=== PATIENT | female | born 2000 | race Caucasian/White ===

== ENCOUNTER 2023-04-14 15:17 | Emergency (ER) | payer OTHER, SELFPAY ==
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
[2023-04-14 15:22] VITALS: BP 108/78; PULSE 80; RESP 16; TEMP 36.6; O2SAT 100
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
[2023-04-14 18:34] VITALS: BP 151/96; PULSE 117; RESP 14; O2SAT 100
[2023-04-14] MEDS: MORPHINE SULFATE (*CRX) 4 MG/ML INJ IV PUSH (18:41)
[2023-04-14] MEDS: LORazepam INJ (*CRX) 2 MG/ML VIAL 0.5 MG IV PUSH (18:41)
[2023-04-14] MEDS: ONDANSETRON INJ 4 MG/2 ML VIAL IV PUSH (18:41)
[2023-04-14 19:07] VITALS: BP 120/87; PULSE 83; RESP 15; TEMP 36.9; O2SAT 100
[2023-04-14 19:22] LABS: Basophils Absolute Auto 0.1 K/mm3 (0.0-0.1); Basophils Percent Auto 0.7 % (0.2-1.2); Eosinophils Absolute Auto 0.3 K/mm3 (0-0.3); Hematocrit 35.8 % (37.0-47.0); Hemoglobin 12.1 g/dL (12.0-15.0); Immature Granulocyte Absolute 0.01 K/mm3 (0.00-0.031); Immature Granulocyte Percent A 0.1 % (0-0.5); Lymphocytes Absolute Auto 2.64 K/mm3 (0.9-3.2); Lymphocytes Percent Auto 34.5 % (18.3-44.2); Mean Corpuscular HGB Conc 33.8 g/dl (32-36); Mean Corpuscular Hemoglobin 31.3 pg (26-34); Mean Corpuscular Volume 92.7 fl (80-100); Mean Platelet Volume 10.4 fl (7.4-10.4); Monocytes Absolute Auto 0.5 K/mm3 (0.1-0.6); Neutrophils Absolute Auto 4.2 K/mm3 (1.3-6.7); Neutrophils Percent Auto 54.7 % (45.5-73.1); Platelet Count Result 284 k/mm3 (150-375); Red Blood Count 3.86 M/mm3 (4.2-5.4); Red Cell Distribution Width 11.6 % (11.5-14.5); White Blood Count 7.7 K/mm3 (4.5-10.0)
== END 2023-04-14 19:38 | disposition short-term general hospital (02) ==
PROVIDERS: Emergency Provider Physician Assistant; PCP Internal Medicine Pulmonary Disease
DX: I62.9 Nontraumatic intracranial hemorrhage, unspecified (principal); S39.012A Strain of muscle, fascia and tendon of lower back, initial encounter; S80.02XA Contusion of left knee, initial encounter; S80.01XA Contusion of right knee, initial encounter; F41.9 Anxiety disorder, unspecified; V49.40XA Driver injured in collision with unspecified motor vehicles in traffic accident, initial encounter
CPT/HCPCS: 36415; 70450; 72125; 72128; 72131; 73564; 81025; 85025; 96374; 96375; 99285; J2060; J2270; J2405

== ENCOUNTER 2025-10-23 10:32 | Outpatient (CLI) | payer OTHER, MEDICAID, SELFPAY ==
--- NOTE | ~2025-10-23 | US_ITS ---
EXAMINATION: US OB BPP wo non-stress DATE: 10/23/2025 12:24 INDICATION: Nonreactive nonstress test. Third trimester. TECHNIQUE: Real-time pelvic ultrasound was performed. COMPARISON: Ultrasound 04/28/2025 FINDINGS: There is a single living fetus in vertex presentation. The placenta is fundal. heart rate is 153 beats per minute (bpm). The amniotic fluid index is 14.3 cm, which is normal. Biophysical profile performed by the technologist: breathing (30 sec sustained breathing in 30 minutes): 2 out of 2 movement (3 gross body movements in 30 minutes): 2 out of 2 tone (one episode of oicxiwl-giekxswyd-yjlbyur limb movement): 2 out of 2 Amniotic fluid pocket (2 cm): 2 out of 2 Total score: 8 out of 8 IMPRESSION: 1. Single living fetus in vertex presentation. 2. Biophysical profile 8 out of 8. Reviewed, dictated and finalized at location E. CULTURAL PRODUCE COMMISSION AGENT
--- OUTSIDE RECORDS SUMMARY | 2025-10-23 10:39 | XMS_ITS | Clinical Summary ---
Author Organization [facility] [address] Address [address] [place] [id number] Care Team Providers Care Electronic Musical Instrument Repairer Name Role Phone Satnam Matute NP Primary Care Provider [phone] Allergies No known active allergies Medications buprenorphine-nalox one (SUBOXONE) 8-[address] 1 Film under the tongue daily for 2 days 2 Film 4 Active gabapentin (NEURONTIN) 400 mg capsule Take 1 capsule (400 mg total) by mouth 2 (two) times a day Active mirtazapine (REMERON TYLER-TAB) 15 mg disintegrating tablet Take 1 tablet (15 mg total) by mouth nightly Active Active Problems Problem Noted Date Diagnosed Date Hematochezia 04/19/2016 Right lower quadrant abdominal pain 04/19/2016 Overview (03/14/2018): Description: --with palpation of her abdomen. Consider IBD. Consider IBS. Rule out infectious etiology. Nausea 04/19/2016 Overview (03/14/2018): Description: --likely related to stress of anxiety. Consider acid peptic disease. Estimated Date of Delivery Comme nts Yes 11/27/2025 Date entered ana maria or to episode creation Encounters Date Type Department Care Team Description 10/09/2025 9:26 AM SENIOR ASP NET DEVELOPER - 10/09/2025 11:25 AM SENIOR ASP NET DEVELOPER Hospital Encounter [facility] [address] [place] [address] Neyda Pham MD Discharge Disposition: Discharge to home or self care 10/09/2025 9:13 AM SENIOR ASP NET DEVELOPER - 10/09/2025 11:10 AM SENIOR ASP NET DEVELOPER Emergency [facility] Emergency Department [address] [place] [address] Discharge Disposition: Still a patient 08/02/2025 10:13 AM CDT - 08/02/2025 11:01 AM CDT Hospital Encounter [facility] [address] [place] [address] Neyda Pham MD Discharge Disposition: Discharge to home or self care from Last 3 Months Family History Medical History Relation Name Comments Depression Father Family history of depression - (Added by TW Conv) Diabetes Father Family history of diabetes mellitus - (Added by TW Conv) Diabetes Mother Family history of diabetes mellitus - (Added by TW Conv) Relation Name Status Comments Father Mother Social History Tobacco Use Types Packs/Day Years Used Date Smoking Tobacco: Never Smokeless Tobacco: Never Tobacco Cessation:Counseling Given: Not Answered Alcohol Use Standard Drinks/Week Comments Never 0 (1 standard drink = 0.6 oz pur e alcohol) PHQ-2 Answer Date Recorded PHQ-2 Total Score (If total score is 3 or more points, staff should administer the PHQ-9) 0 10/09/2025 PHQ-9 Answer Date Recorded PHQ-9 Total Score 0 10/09/2025 Humiliation, Afraid, Rape, and Kick questionnair e Answer Date Recorded Within the last year, have y ou been afraid of your partner or ex-partner? No 10/09/2025 Within the last year, have y ou been humiliated or emotionally abused in other ways by your partner or ex-partner? No Within the last year, have y ou been kicked, hit, slapped, or otherwise physically hurt by your partner or ex-partner? No 10/09/2025 Within the last year, have y ou been raped or forced to have any kind of sexual activity by your partner or ex-partner? No 10/09/2025 Social Connection and Isolation Panel Answer Date Recorded In a typical week, how many times do you talk on the phone with family, friends, or neighbors? Three times a week 10/09/20 How often do you get togethe r with friends or relatives? Three times a week 10/09/2025 How often do you attend chur ch or protestant services? Never 10/09/2025 Do you belong to any clubs o r organizations such as christian groups, unions, fraternal or athletic groups, or school groups? No 10/09/2025 How often do you attend meet ings of the clubs or organizations you belong to? Never 10/09/2025 Are you , , di vorced, , never , or living with a partner? Living with partner 10/09/2025 AUDIT-C Answer Date Recorded Q1: How often do you have a drink containing alcohol? Never 10/09/2025 Q2: How many drinks containi ng alcohol do you have on a typical day when you are drinking? Patient does not drink Q3: How often do you have si x or more drinks on one occasion? Never 10/09/2025 Overall Financial Resource Strain (CARDIA) Answe r Date Recorded How hard is it for you to pa y for the very basics like food, housing, medical care, and heating? Not hard at all 10/09/2025 [facility] - Occupational Stress Questionnaire Answer Date Recorded Do you feel stress - tense, restless, nervous, or anxious, or unable to sleep at night because your mind is troubled all the time - these days? Only a little 10/09/2025 Exercise Vital Sign Answer Date Recorde d On average, how many days pe r week do you engage in moderate to strenuous exercise (like a brisk walk)? 5 days 10/09/2025 On average, how many minutes do you engage in exercise at this level? 30 min 10/09/2025 Hunger Vital Sign Answer Date Recorded Within the past 12 months, y ou worried that your food would run out before you got the money to buy more. Never true 10/09/20 25 Within the past 12 months, t he food you bought just didn't last and you didn't have money to get more. Never true 10/09/2025 PRAPARE - Transportation Answer Date Re corded In the past 12 months, has l ack of transportation kept you from medical appointments or from getting medications? No 07/2025 In the past 12 months, has l ack of transportation kept you from meetings, work, or from getting things needed for daily living? No 10/09/2025 Housing Stability Vital Sign Answer Adilson e Recorded In the last 12 months, was t here a time when you were not able to pay the mortgage or rent on time? No 10/09/2025 Number of Times Moved in the Last Year Not on fi le 10/09/2025 At any time in the past 12 m [facility], were you homeless or living in a longterm (including now)? No 10/09/2025 [facility] Utilities Answer Date Recorded In the past 12 months has th e electric, gas, oil, or water company threatened to shut off services in your home? No 10/09/2025 Personal Safety Answer Date Recorded Have you ever been in or are you currently in a harmful physical or emotional relationship or is someone making you feel afraid or unsafe? Denies 10/09/2025 Estimated Date of Delivery Comme nts Yes 11/27/2025 Date entered ana maria or to episode creation Sex and Gender Information Value Date Recorded Sex Assigned at Not on file Legal Sex Female 8:17 AM SENIOR ASP NET DEVELOPER Gender Identity Not on file Sexual Orientation Not on file Obstetrics History Para Term AB IAB SAB Ectopic Multiple Livin g Live Births 1 Date Outcome GA Total Labor Labor/2nd/3rd Weight Sex Type Anes PTL Iman A1 A5 Name Clin Current Summary Episode Dates Number of Fetuses Estimated Date of Delivery 08/02/2025 - Present (10/23/2025) 11/27/2025 (based on Alternate DENIS Entry) Dating Summary Based On DENIS GA Diff Alternate DENIS Entry 11/27/2025 Working Comment:Date entered prior t o episode creation Vitals Pregravid Weight Height TWG (As of 10/23/2025) Pregrav id BMI 154.9 cm (5' 1) Date GA Fund Present FHR Mvmt BP Weight Edema Alb Glu Ket Dil/ Eff/Sta 5 23w2d Inpatient data not displayed here. See encounter summary. 5 33w0d Inpatient data not displayed here. See encounter summary. Last Filed Vital Signs Vital Sign Reading Time Taken Comments Blood Pressure 124/82 10/09/2025 11:03 AM SENIOR ASP NET DEVELOPER Pulse 111 10/09/2025 11:03 AM SENIOR ASP NET DEVELOPER Temperature 36.1 C (96.9 F) 10/09/2025 9:36 AM SENIOR ASP NET DEVELOPER Respiratory Rate 16 10/09/2025 9:16 AM SENIOR ASP NET DEVELOPER Oxygen Saturation 100% 10/09/2025 9:16 AM SENIOR ASP NET DEVELOPER Inhaled Oxygen Concentration - - Weight 77.1 kg (170 lb) 08/02/2025 10:29 AM CDT Height 154.9 cm (5' 1) 08/02/2025 10:29 AM CDT Body Mass Index 32.12 08/02/2025 10:29 AM CDT Plan of Treatment Upcoming Encounters Date Type Department Care Team (Late st Contact Info) Description 11/27/2025 Hospital Encounter [facility] [address] [place] [address] Neyda Pham MD [address] [place] [id number] Health Maintenance Due Date Last Done Comments Cervical Cancer Screening 2000 Hepatitis C Screening 2000 HPV Vaccines (1 - 3-dose series) 2015 Regular Well Visit/Exam 18-64 2018 DTaP/Tdap/Td Vaccine (7 - Td or Tdap) 07/29/2022 07/29/2012, 01/10/2006, 01/10/2006, Additional history exists Covid-19 Vaccine (3 - 2024-2 6 season) 2025 06/20/2021, 05/30/2021 Influenza Vaccine (#1) 2025 Depression Screening 08/02/2026 08/02/2025, 08/02/2025, 08/02/2025 Hepatitis B Screening Completed 09/01/2001 , 01/07/2001, 2000 Pneumococcal vaccine <65 Completed 002, 06/18/2001, 04/17/2001, Additional history exists Varicella Vaccines Completed 07/29/2012, 12/04/2001 Procedures Procedure Name Priority Date/Time Associated Diagnosis Comments PAMG-1 PROTEIN MARKER (ROM) Routine 10/09/2025 10:02 AM SENIOR ASP NET DEVELOPER URINALYSIS AND REFLEX TO MICROSCOPIC AND CULTURE Routine 08/02/2025 10:28 AM CDT from Last 3 Months Results * ROM Plus (IGFBP-1/AFP) (10/09/2025 10:02 AM SENIOR ASP NET DEVELOPER) IFG Binding Protein-1 / AFP Negative Swab 10/09/2025 10:0 2 AM SENIOR ASP NET DEVELOPER 10/09/2025 10:12 AM SENIOR ASP NET DEVELOPER us Neyda Pham MD LAB BODY FLUIDS AND S TOOLS ORDERABLES Final Result [facility] ([place]) 1 [facility] [place] [address] * Urinalysis reflex to microscopic and culture Urine (08/02/2025 10:28 AM CDT) Color, ur Straw Yellow Clarity, ur Clear Clear [facility] ([place]) Specific gravity, ur 1.007 1.003 - 1.030 [facility] ([place]) pH, urine 7.0 [facility] ([place]) Comment: Interpretive Data U rine pH is affected by diet, medications, systemic acid-base disturbances, and renal tubular function. pH may affect urinary stone formation. For example, urine pH below 6.0 may help reduce the tendency for calcium phosphate stones and pH greater than 6.0 may reduce the tendency for uric acid stone formation. Source: [facility] [employer] Travel Guide Current Interpretive Data was last revised on 2017 Protein, ur ql Negative Negative [facility] ([place]) Glucose, ur ql Negative Negative [facility] ([place]) Ketones, ur Negative Negative [facility] ([place]) Bilirubin, ur Negative Negative [facility] ([place]) Blood, ur Negative Negative [facility] ([place]) Urobilinogen, ur <2.0 <2.0 mg/dL [facility] ([place]) Nitrite, ur Negative Negative [facility] ([place]) Leukocyte esterase, ur Negative Negative [facility] ([place]) UA reflex comment Reflex conditions for microscopic UA and culture not met. [facility] ([place]) Urine 08/02/2025 10:2 8 AM CDT 08/02/2025 10:40 AM CDT Neyda Pham MD LAB MICROBIOLOGY - NERAL ORDERABLES Final Result [facility] [place]) 1 [facility] Department [place] [address] from Last 3 Months Insurance [facility] CHOICE [employer]US [facility] HMO/PPO Address: [facility] [id number] [place] [id number] [facility] CHOICE PLUS [facility] HMO/PPO Address: [facility] [address] [place] [address] Care Teams Electronic Musical Instrument Repairer Relationship Specialty Start Date End Date Satnam Matute NP [facility] [place] [address] [address] PCP - General Nurse Practitioner 03/21/22
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
[2025-10-23 11:00] VITALS: BP 125/85; PULSE 116
[2025-10-23 11:15] VITALS: BP 130/91; PULSE 112
[2025-10-23 11:22] VITALS: BP 146/83; PULSE 94
[2025-10-23 11:33] VITALS: BP 132/90; PULSE 101
[2025-10-23 11:38] LABS: Hematocrit 37.0 % (37.0-47.0); Hemoglobin 12.5 g/dL (12.0-15.0); Immature Granulocyte Percent A 0.4 % (0-0.5); Lymphocytes Absolute Auto 2.00 K/mm3 (0.9-3.2); Mean Corpuscular HGB Conc 33.8 g/dl (32-36); Mean Corpuscular Hemoglobin 31.0 pg (26-34); Mean Corpuscular Volume 91.8 fl (80-100); Nucleated Red Blood Cells Absolute Auto 0.000 K/mm3 (0.0-0.012); Nucleated Red Blood Cells Perc 0.0 % (0.0-0.2); Platelet Count Result 179 k/mm3 (150-375); Red Blood Count 4.03 M/mm3 (4.2-5.4); White Blood Count 9.5 K/mm3 (4.5-10.0)
[2025-10-23 11:45] VITALS: BP 136/93; PULSE 100
[2025-10-23 11:49] LABS: Add Urine Microscopic? YES; Alanine Aminotransferase 14 U/L (6-35); Albumin Level 3.6 g/dL (3.5-5.1); Alkaline Phosphatase 105 U/L (38-126); Anion Gap 6 mmol/L (4-12); Appearance Urine Cloudy (Clear); Aspartate Amino Transferase 16 U/L (14-36); Bilirubin,Total 0.3 mg/dL (0.2-1.3); Blood Urea Nitrogen 6 mg/dL (7-17); Calcium 9.2 mg/dL (8.4-10.2); Carbon Dioxide 22 mmol/L (22-30); Chloride 104 mmol/L (98-107); Estimated Glomerular Filt Rate > 60; Glucose 102 mg/dL (65-110); Glucose Urine UA Negative (Negative); Leukocyte Esterase Ur Trace LEU/UL (Negative); Need Manual Microscopic Reviewed; Nitrate Urine Negative (Negative); Potassium 3.9 mmol/L (3.4-5.0); Sodium 132 mmol/L (137-145); Specific Grav Ur 1.022 (1.001-1.035); Total Protein 7.0 g/dL (6.3-8.2); Uric Acid 4.0 mg/dL (2.5-7.5)
[2025-10-23 11:50] LABS: Total Protein Urine Random 7 mg/dL; Ur Ttl Prot Creatinine Ratio 0.05 mg/mg (0-0.20)
[2025-10-23 12:56] VITALS: BP 125/85; PULSE 116
== END 2025-10-23 12:30 | disposition home or self-care (01) ==
LOC: ANHOBOP 10:37 → ANHLDR 10:40
PROVIDERS: Visit Provider Obstetrics & Gynecology
DX: O13.9 Gestational [pregnancy-induced] hypertension without significant proteinuria, unspecified trimester (principal); Z3A.00 Weeks of gestation of pregnancy not specified
CPT/HCPCS: 36415; 59025; 76819; 80053; 81001; 82570; 84156; 84550; 85025; 99199

== ENCOUNTER 2025-10-26 15:20 | Outpatient (CLI) | payer OTHER, MEDICAID, SELFPAY ==
--- NOTE | ~2025-10-26 | US_ITS ---
EXAMINATION: Ultrasound uterus, OB, biophysical profile, Limited: DATE: 10/26/2025. INDICATION: 24-year-old, 35+ weeks of gestational age hypertension. TECHNIQUE: Biophysical profile score examination as per protocol including breathing, movement, tone and amniotic. . COMPARISON: Previous biophysical profile 10/23/2025 FINDINGS: Single fetus in cephalic presentation. Biophysical profile score of 8/8 with 2/2 for breathing, movements, tone and amniotic fluid pocket. Amniotic fluid index at 16.7 cm. Posterior placenta. Cervix was not evaluated. IMPRESSION: 1. Single live fetus, 35+ weeks of gestational age by LMP with cephalic presentation. 2. Biophysical profile score of 8/8 amniotic fluid index of 16.7 cm. Reviewed, dictated and finalized at location T. GAME BOX PERSON IMPRESSION: 1. Single live fetus, 35+ weeks of gestational age by LMP with cephalic present ation. 2. Biophysical profile score of 8/8 amniotic fluid index of 16.7 cm.
[2025-10-26 15:41] VITALS: BP 140/91; PULSE 101
[2025-10-26 15:45] VITALS: BP 136/89; PULSE 100
[2025-10-26 15:50] LABS: Hematocrit 39.9 % (37.0-47.0); Hemoglobin 13.5 g/dL (12.0-15.0); Immature Granulocyte Percent A 0.3 % (0-0.5); Lymphocytes Absolute Auto 2.31 K/mm3 (0.9-3.2); Mean Corpuscular HGB Conc 33.8 g/dl (32-36); Mean Corpuscular Hemoglobin 31.0 pg (26-34); Mean Corpuscular Volume 91.7 fl (80-100); Nucleated Red Blood Cells Absolute Auto 0.000 K/mm3 (0.0-0.012); Nucleated Red Blood Cells Perc 0.0 % (0.0-0.2); Platelet Count Result 200 k/mm3 (150-375); Red Blood Count 4.35 M/mm3 (4.2-5.4); White Blood Count 9.6 K/mm3 (4.5-10.0)
[2025-10-26 15:53] LABS: Add Urine Microscopic? NO; Appearance Urine Clear (Clear); Glucose Urine UA Negative (Negative); Leukocyte Esterase Ur Negative LEU/UL (Negative); Nitrate Urine Negative (Negative); Specific Grav Ur 1.009 (1.001-1.035)
[2025-10-26 16:00] VITALS: BP 124/83; PULSE 91
[2025-10-26 16:01] LABS: Alanine Aminotransferase 15 U/L (6-35); Albumin Level 4.0 g/dL (3.5-5.1); Alkaline Phosphatase 123 U/L (38-126); Anion Gap 9 mmol/L (4-12); Aspartate Amino Transferase 20 U/L (14-36); Bilirubin,Total 0.4 mg/dL (0.2-1.3); Blood Urea Nitrogen 6 mg/dL (7-17); Calcium 9.6 mg/dL (8.4-10.2); Carbon Dioxide 21 mmol/L (22-30); Chloride 102 mmol/L (98-107); Estimated Glomerular Filt Rate > 60; Glucose 79 mg/dL (65-110); Potassium 3.8 mmol/L (3.4-5.0); Sodium 132 mmol/L (137-145); Total Protein 7.7 g/dL (6.3-8.2); Total Protein Urine Random 15 mg/dL; Ur Ttl Prot Creatinine Ratio 0.44 mg/mg (0-0.20); Uric Acid 3.9 mg/dL (2.5-7.5)
[2025-10-26 16:13] VITALS: BP 140/91; PULSE 86
[2025-10-26 16:15] VITALS: BP 135/81; PULSE 98
--- OUTSIDE RECORDS SUMMARY | 2025-10-26 17:03 | XMS_ITS | Clinical Summary ---
Author Organization [facility] [address] Address [address] [place] [address] Care Team Providers Care Casualty Claims Supervisor Name Role Phone Satnam Matute NP Primary Care Provider [phone] Allergies No known active allergies Medications buprenorphine-nalox [...] Department Care Team Description 10/09/2025 9:26 AM DINING SERVICES DIRECTOR - 10/09/2025 11:25 AM DINING SERVICES DIRECTOR Hospital Encounter [facility] [address] [place] [address] Neyda Pham MD Discharge Disposition: Discharge to home or self care 10/09/2025 9:13 AM DINING SERVICES DIRECTOR - 10/09/2025 11:10 AM DINING SERVICES DIRECTOR Emergency [facility] Emergency Department [address] [place] [address] Discharge Disposition: Still a patient 08/02/2025 10:13 AM CDT - 08/02/2025 11:01 AM CDT Hospital Encounter [facility] [address] [place] [address] Neyda Pham MD Discharge Disposition: Discharge to [...] often do you attend chur ch or pentecostal services? Never 10/09/2025 Do you belong to any clubs o r organizations such as taoist groups, unions, fraternal or athletic groups, or [...] and heating? Not hard at all 10/09/2025 [facility] - Occupational Stress [...] any time in the past 12 m [facility], were you homeless or living in a snf (including now)? No 10/09/[address] [facility] Utilities Answer Date Recorded In the past 12 months has th e [employer], gas, oil, or water company threatened to [...] on file Legal Sex Female 8:17 AM DINING SERVICES DIRECTOR Gender Identity Not on file Sexual Orientation Not on file Obstetrics History Para Term AB IAB SAB Ectopic Multiple Livin g Live Births 1 Date Outcome GA Total Labor Labor/2nd/3rd Weight Sex Type Anes PTL Iman A1 A5 Name Clin Current Summary Episode Dates Number of Fetuses Estimated Date of Delivery 08/02/2025 - Present (10/26/2025) 11/27/2025 (based on Alternate DENIS Entry) Dating Summary Based On DENIS GA Diff Alternate DENIS Entry 11/27/2025 Working Comment:Date entered prior t o episode creation Vitals Pregravid Weight Height TWG (As of 10/26/2025) Pregrav id BMI 154.9 cm (5' 1) Date GA Fund Present FHR Mvmt BP Weight Edema Alb Glu Ket Dil/ Eff/Sta 5 23w2d Inpatient data not displayed here. See encounter summary. 5 33w0d Inpatient data not displayed here. See encounter summary. Last Filed Vital Signs Vital Sign Reading Time Taken Comments Blood Pressure 124/82 10/09/2025 11:03 AM DINING SERVICES DIRECTOR Pulse 111 10/09/2025 11:03 AM DINING SERVICES DIRECTOR Temperature 36.1 C (96.9 F) 10/09/2025 9:36 AM DINING SERVICES DIRECTOR Respiratory Rate 16 10/09/2025 9:16 AM DINING SERVICES DIRECTOR Oxygen Saturation 100% 10/09/2025 9:16 AM DINING SERVICES DIRECTOR Inhaled Oxygen Concentration - - Weight 77.1 kg (170 lb) 08/02/2025 10:29 AM CDT Height 154.9 cm (5' 1) 08/02/2025 10:29 AM CDT Body Mass Index 32.12 08/02/2025 10:29 AM CDT Plan of Treatment Upcoming Encounters Date Type Department Care Team (Late st Contact Info) Description 11/27/2025 Hospital Encounter [facility] [address] [place] [address] Neyda Pham MD [address] [place] [address] Health Maintenance Due Date Last Done Comments [...] PROTEIN MARKER (ROM) Routine 10/09/2025 10:02 AM DINING SERVICES DIRECTOR URINALYSIS AND REFLEX TO MICROSCOPIC AND CULTURE Routine 08/02/2025 10:28 AM CDT from Last 3 Months Results * ROM Plus (IGFBP-1/AFP) (10/09/2025 10:02 AM DINING SERVICES DIRECTOR) IFG Binding Protein-1 / AFP Negative Swab 10/09/2025 10:0 2 AM DINING SERVICES DIRECTOR 10/09/2025 10:12 AM DINING SERVICES DIRECTOR us Neyda Pham MD LAB BODY FLUIDS AND S TOOLS ORDERABLES Final Result [facility]) [address] [facility] [place] [address] * Urinalysis reflex to microscopic and culture [...] tendency for uric acid stone formation. Source: [facility] [address] [employer] Current Interpretive Data was last revised on [...] - NERAL ORDERABLES Final Result [facility] [place]) [address] [facility] Department [place] [address] from Last 3 Months Insurance [facility] PLUS [facility] PL[facility] Care Teams Casualty Claims Supervisor Relationship Specialty Start Date End Date Satnam Matute NP [facility] [place] [address] [address] PCP - General Nurse Practitioner 03/21/22
--- OUTSIDE RECORDS SUMMARY | 2025-10-26 17:03 | XMS_ITS | Clinical Summary ---
Author Organization [facility] Address [facility] [place] [address] Care Team Providers Care Field Instructor Name Role Phone Patricia Brooks PA-C Primary Care Provider [phone] Allergies No known active allergies Medications omeprazole 20 MG capsuleIndicatio ns:Gastroesophag eal reflux disease without esophagitis Take 1 capsule (20 mg total) by mouth daily. 90 capsule 3 05/22/2022 Active LORAZEPAM 1 MG tabletIndication s:Generalized anxiety disorder TAKE 1 TABLET BY MOUTH IN THE MORNING FOR 30 DAYS 30 tablet 05/24/2022 Active Active Problems Problem Noted Date Diagnosed Date Irregular periods 09/06/2021 Generalized anxiety disorder 09/06/2021 Insomnia 06/14/2021 Gastroesophageal reflux disease without esophagi tis 06/14/2021 Resolved Problems Problem Noted Date Diagnosed Date Resolved Date Anxiety 06/14/2021 09/06/2021 Immunizations Immunization Administration Dates Next Due Dtap 01/10/2006, 2,06/18/2001,04/17/2001, 001 Hepatitis A (Generic) 05/30/2015,07/29/2012 Hepatitis B Pediatric 09/01/2001,01/07/2001,11/02 Hib (PedvaxHIB)3 Dose 06/02/2002,06/18/2001,04/01,02/11/2001 MMR 01/10/2006,06/02/2002 Menactra 05/30/2015 Pneumococcal (Prevnar 7) 06/02/2002,06/18/2001,0 04/17/2001,02/11/2001 Polio Ipv (Generic) 01/10/2006,06/02/2002,2000,02/11/2001 Tdap (Generic) 07/29/2012 Varicella (Generic) 07/29/2012,12/04/2001 Family History Medical History Relation Comments Hypertension Father Relation Status Comments Father Alive Mother Alive Social History Tobacco Use Types Packs/Day Years Used Date Smoking Tobacco: Every Day Cigarettes Smokeless Tobacco: Never Tobacco Cessation:Ready to Q uit: No; Counseling Given: Yes Alcohol Use Standard Drinks/Week Comments Never 0 (1 standard drink = 0.6 oz pur e alcohol) PHQ-2 Answer Date Recorded PHQ-2 Score - If the patient scores above 3, please move on to questions 3-9 1 04/25/2022 Comments Unknown Sex and Gender Information Value Date Recorded Sex Assigned at Not on file Legal Sex Female 1:06 PM CDT Gender Identity Not on file Sexual Orientation Not on file Last Filed Vital Signs Vital Sign Reading Time Taken Comments Blood Pressure 100/67 04/25/2022 11:20 AM CDT Pulse 109 04/25/2022 11:20 AM CDT Temperature 37.1 C (98.8 F) 04/25/2022 11:20 AM CDT Respiratory Rate 20 09/06/2021 2:10 PM CDT Oxygen Saturation 100% 04/25/2022 11:20 AM CDT Inhaled Oxygen Concentration - - Weight 59.9 kg (132 lb) 04/25/2022 11:20 AM CDT Height 160 cm (5' 3) 09/06/2021 2:10 PM CDT Body Mass Index 23.38 09/06/2021 2:10 PM CDT Plan of Treatment Health Maintenance Due Date Last Done Comments Cervical Cancer Screening Pap Smear (Age 21 to 29) Every 3 Years 2000 Cervical Cancer Screening 2000 Annual Physical 2003 HPV Vaccines (1 - 3-dose series) 2015 Hepatitis C 2018 Pneumococcal Vaccine: Pediatrics (0 to 5 Years) and At-Risk Patients (6 to 49 Years) (1 of 2 - PCV) 2019 06/02/2002, 06/18/2001, 04/17/2001, Additional history exists DTaP, Tdap and Td Vaccines (7 - Td or Tdap) 07/29/2022 07/29/2012, 01/10/2006, 06/02/2002, Additional history exists COVID-19 Vaccine (3 - season) 2025 06/20/2021, 05/30/2021 Influenza Adult (#1) 2025 Hepatitis B Vaccines Completed 09/01/2001, 01/07/2001, 2000 Hepatitis A Vaccines Completed 05/30/2015, 07/29/20 12 Meningococcal Vaccine Aged Out 05/30/2015 No ene gurwinder eligible based on patient's age to complete this topic Meningococcal B Vaccine Aged Out No l onger eligible based on patient's age to complete this topic RSV Immunizations Under 20 Months Aged Out No longer eligible based on patient's age to complete this topic Insurance [facility] Care Teams Field Instructor Relationship Specialty Start Date End Date Patricia Brooks PA-C [address] [place] [id number] PCP - General PHYSICIAN SANDWICH ARTIST 08/16/21
== END 2025-10-26 16:50 | disposition home or self-care (01) ==
LOC: ANHOBOP 15:25 → ANHLDR 15:25
PROVIDERS: Visit Provider Obstetrics & Gynecology
DX: O13.9 Gestational [pregnancy-induced] hypertension without significant proteinuria, unspecified trimester (principal); Z3A.00 Weeks of gestation of pregnancy not specified
CPT/HCPCS: 36415; 59025; 76819; 80053; 81003; 82570; 84156; 84550; 85025; 99199

== ENCOUNTER 2025-10-30 16:21 | Outpatient (CLI) | payer OTHER, MEDICAID, SELFPAY ==
[2025-10-30] VITALS (27 sets, daily range): BP systolic 124–139; BP diastolic 75–96; PULSE 88–112; TEMP 36.8; O2SAT 96–100; BMI 37.5
--- OUTSIDE RECORDS SUMMARY | 2025-10-30 16:56 | XMS_ITS | Clinical Summary ---
Author Organization [facility] Address [facility] [place] [address] Care Team Providers Care Precision Lens Centerer And Edger Name Role Phone Patricia Brooks PA-C Primary Care Provider [phone]- [phone] Allergies No known active allergies Medications omeprazole [...] patient's age to complete this topic Insurance [facility] Care Teams Precision Lens Centerer And Edger Relationship Specialty Start Date End Date Patricia Brooks PA-C [address] [place] [id number] PCP - General PHYSICIAN LAN ANALYST 08/16/21
--- OUTSIDE RECORDS SUMMARY | 2025-10-30 16:56 | XMS_ITS | Data Portability ---
Author Organization [place] [facility] - [facility] [place] Address [address] [facility] [address] [place] [address] Assessment Encounter Date Assessment Date Assessment LastModified [...] used during this encounter to provide a prwd-eg-edyb interactive encounter. Components of this encounter are a culmination of visual and patient-assisted findings. [email or web address] Not available 03/26/2024 14:07:03 03/27/2024 03/27/2024 Pt [...] By Organization Details Last Modified Time 03/27/2024 [id number] I have discussed the risks and benefits [...] Pt also agrees that me, and the [facility] Team are my treating physicians [...] ICD10 Code Diagnosis IMO Codes Diagnosis Note [id number] [facility] [address] [place] [address],[address] [place] [address] 03/26/2024 13:56:55 03/26/2024 14:07:45 Chronic pain [id number] G89.29 [id number] [facility] [address] [place] [address],[address] [place] [address] 03/27/2024 11:10:45 03/27/2024 11:30:06 Chronic pain [id number] G89.29 Health Concerns Section Related Observation LastModified by Organization Detai ls LastModified Time None Recorded Concern Status LastModified by Organization Details LastModified Time None Recorded Advance Directives Directive None Recorded Payers Insurance Date Sequence Insurance Name Policy Number Policy Mcknight Covered Member ID Mcknight Member ID Guarantor Name 04/10/2024 1 [facility] [id number] [facility] [id number] [facility] Notes Date Note Type Note Provider Name [...] XIMENA Negron [address], [address], [place], [address], [facility] 03/26/2024 14:07:40 4 text/html ROS [...] Chatterjee MD [address], [address], [place], [address], [facility] 03/27/2024 11:18:57 OBGyn Episode No OBEpisode recorded.
--- OUTSIDE RECORDS SUMMARY | 2025-10-30 16:56 | XMS_ITS | Clinical Summary ---
Author Organization [facility] [address] Address [address] [place] [id number] Care Team Providers Care Vacuum Truck Driver Name Role Phone Satnam Matute NP Primary Care Provider [phone] Allergies No known active allergies Medications buprenorphine-nalox [...] Department Care Team Description 10/09/2025 9:26 AM DIRECTOR ORANGE - 10/09/2025 11:25 AM DIRECTOR ORANGE Hospital Encounter [facility] [address] [place] [address] Neyda Pham MD Discharge Disposition: Discharge to home or self care 10/09/2025 9:13 AM DIRECTOR ORANGE - 10/09/2025 11:10 AM DIRECTOR ORANGE Emergency [facility] Emergency Department [address] [place] [address] Discharge Disposition: Still a patient 08/02/2025 10:13 AM CDT - 08/02/2025 11:01 AM CDT Hospital Encounter [facility] [address] [place] [address] Neyda Pham MD Discharge Disposition: Discharge to [...] often do you attend chur ch or orthodoxy services? Never 10/09/2025 Do you belong to any clubs o r organizations such as catholic groups, unions, fraternal or athletic groups, or [...] and heating? Not hard at all 10/09/2025 [facility] - [...] any time in the past 12 m [facility], were you homeless or living in a skilled nursing (including now)? No 10/09/2025 [facility] Utilities Answer Date Recorded In the past 12 months has th e [employer], gas, oil, or water company threatened to [...] on file Legal Sex Female 8:17 AM DIRECTOR ORANGE Gender Identity Not on file Sexual Orientation Not on file Obstetrics History Para Term AB IAB SAB Ectopic Multiple Livin g Live Births 1 Date Outcome GA Total Labor Labor/2nd/3rd Weight Sex Type Anes PTL Iman A1 A5 Name Clin Current Summary Episode Dates Number of Fetuses Estimated Date of Delivery 08/02/2025 - Present (10/30/2025) 11/27/2025 (based on Alternate DENIS Entry) Dating Summary Based On DENIS GA Diff Alternate DENIS Entry 11/27/2025 Working Comment:Date entered prior t o episode creation Vitals Pregravid Weight Height TWG (As of 10/30/2025) Pregrav id BMI 154.9 cm (5' 1) Date GA Fund Present FHR Mvmt BP Weight Edema Alb Glu Ket Dil/ Eff/Sta 5 23w2d Inpatient data not displayed here. See encounter summary. 5 33w0d Inpatient data not displayed here. See encounter summary. Last Filed Vital Signs Vital Sign Reading Time Taken Comments Blood Pressure 124/82 10/09/2025 11:03 AM DIRECTOR ORANGE Pulse 111 10/09/2025 11:03 AM DIRECTOR ORANGE Temperature 36.1 C (96.9 F) 10/09/2025 9:36 AM DIRECTOR ORANGE Respiratory Rate 16 10/09/2025 9:16 AM DIRECTOR ORANGE Oxygen Saturation 100% 10/09/2025 9:16 AM DIRECTOR ORANGE Inhaled Oxygen Concentration - - Weight 77.1 kg (170 lb) 08/02/2025 10:29 AM CDT Height 154.9 cm (5' 1) 08/02/2025 10:29 AM CDT Body Mass Index 32.12 08/02/2025 10:29 AM CDT Plan of Treatment Upcoming Encounters Date Type Department Care Team (Late st Contact Info) Description 11/27/2025 Hospital Encounter [facility] [address] [place] [address] Neyda Pham MD [address] [place] [address] Health Maintenance Due Date Last Done Comments [...] PROTEIN MARKER (ROM) Routine 10/09/2025 10:02 AM DIRECTOR ORANGE URINALYSIS AND REFLEX TO MICROSCOPIC AND CULTURE Routine 08/02/2025 10:28 AM CDT from Last 3 Months Results * ROM Plus (IGFBP-1/AFP) (10/09/2025 10:02 AM DIRECTOR ORANGE) IFG Binding Protein-1 / AFP Negative Swab 10/09/2025 10:0 2 AM DIRECTOR ORANGE 10/09/2025 10:12 AM DIRECTOR ORANGE us Neyda Pham MD LAB BODY FLUIDS AND S TOOLS ORDERABLES Final Result [facility]) 1 [facility] [place] [address] * Urinalysis reflex to microscopic and culture [...] tendency for uric acid stone formation. Source: [facility] [email or web address] Current Interpretive Data was last revised on [...] - NERAL ORDERABLES Final Result [facility] [place]) 1 [facility] Department [place] [address] from Last [address] [facility] Care Teams Vacuum Truck Driver Relationship Specialty Start Date End Date Satnam Matute NP [facility] [place] [address] [address] PCP - General Nurse Practitioner 03/21/22
--- OUTSIDE RECORDS SUMMARY | 2025-10-30 16:56 | XMS_ITS | Patient Health Record ---
Author Organization [facility] Address [address] [place] [address] Care Team Providers Care Home Health Scheduler Name Role Phone Niru Hdez Primary Care Provider [phone] Margareth Charles Unavailable [phone] Bahman Mcrae Unavailable [phone] Deja Costello Unavailable [phone] Allergies No Known Allergies Results Component Value Reference Range Notes 12 Panel Urine Drug Screen Reviewed date:02/26/2025 10:19:14 AM Interpretation: Performing Lab: Notes/Report: THC POS IVANIA neg MOP (OPI) neg AMP neg MET neg BAR neg BZO neg MDMA neg MTD neg OXY POS PCP neg BUP POS 14 Panel Urine Drug Screen Reviewed date:10/21/2025 10:43:05 AM Interpretation: Performing Lab: Notes/Report: THC neg IVANIA neg MOP (OPI) neg AMP neg MET neg BAR neg BZO neg MDMA neg MTD neg OXY neg PCP neg BUP POS TCA neg FTY neg 14 Panel Urine Drug Screen Reviewed date:07/20/2025 01:22:29 PM Interpretation: Performing Lab: Notes/Report: THC POS IVANIA neg MOP (OPI) neg AMP neg MET neg BAR neg BZO neg MDMA neg MTD neg OXY neg PCP neg BUP POS TCA neg FTY neg 14 Panel Urine Drug Screen Reviewed date:08/20/2025 10:46:24 AM Interpretation: Performing Lab: Notes/Report: THC pos IVANIA neg MOP (OPI) neg AMP neg MET neg BAR neg BZO neg MDMA neg MTD neg OXY neg PCP neg BUP pos TCA neg FTY neg 12 Panel Urine Drug Screen Reviewed date:04/05/2025 09:51:21 AM Interpretation: Performing Lab: Notes/Report: THC POS IVANIA neg MOP (OPI) neg AMP neg MET neg BAR neg BZO neg MDMA neg MTD neg OXY neg PCP neg BUP POS 12 Panel Urine Drug Screen Reviewed date:04/12/2025 09:59:41 AM Interpretation: Performing Lab: Notes/Report: THC POS IVANIA neg MOP (OPI) neg AMP neg MET neg BAR neg BZO neg MDMA neg MTD neg OXY neg PCP neg BUP POS 12 Panel Urine Drug Screen Reviewed date:02/11/2025 03:41:50 PM Interpretation: Performing Lab: Notes/Report: THC POS IVANIA neg MOP (OPI) neg AMP neg MET neg BAR neg BZO neg MDMA neg MTD neg OXY neg PCP neg BUP POS 12 Panel Urine Drug Screen Reviewed date:03/12/2025 09:11:50 AM Interpretation: Performing Lab: Notes/Report: THC POS IVANIA neg MOP (OPI) neg AMP neg MET neg BAR neg BZO neg MDMA neg MTD neg OXY neg PCP neg BUP POS 12 Panel Urine Drug Screen Reviewed date:01/19/2025 08:57:11 AM Interpretation: Performing Lab: Notes/Report: THC POS IVANIA neg MOP (OPI) neg AMP neg MET neg BAR neg BZO neg MDMA neg MTD neg OXY neg PCP neg BUP POS 14 Panel Urine Drug Screen Reviewed date:05/17/2025 09:32:49 AM Interpretation: Performing Lab: Notes/Report: THC POS IVANIA neg MOP (OPI) neg AMP neg MET neg BAR neg BZO neg MDMA neg MTD neg OXY neg PCP neg BUP POS TCA neg FTY neg 14 Panel Urine Drug Screen Reviewed date:06/14/2025 10:56:04 AM Interpretation: Performing Lab: Notes/Report: THC POS IVANIA neg MOP (OPI) neg AMP neg MET neg BAR neg BZO neg MDMA neg MTD neg OXY neg PCP neg BUP POS TCA neg FTY neg 14 Panel Urine Drug Screen Reviewed date:09/17/2025 01:43:30 PM Interpretation: Performing Lab: Notes/Report: THC POS IVANIA neg MOP (OPI) neg AMP neg MET neg BAR neg BZO neg MDMA neg MTD neg OXY neg PCP neg BUP POS TCA neg FTY neg Reason For Referral No Information Medications Medication SIG (Take, Route, Fr equency, Duration) Notes Start Date End Date Status Buprenorphine HCl 8 MG 1.5 tablet under the tongue and allow to dissolve Sublingual daily; Duration: 30 days 10/21/2025 Active Mirtazapine 15 MG 1 tablet at bedtime Orally Once a day; Duration: 30 days Ac tive Gabapentin 400 MG 1 capsule Orally twi ce a day; Duration: 30 days Active Social History Tobacco Use: Social History Observation Description Date Details (start date - stop date) Never Smoker NA - NA Sex Assigned At : Social History Observation Description Sex Assigned At Female Tobacco Control (Standard) Question Answer Notes Tobacco use: Nonsmoker Problems Problem Type SNOMED Code ICD Code Onset Dates Problem Status W/U Status Risk Notes Problem Information temporarily unavailable Nicotine dependence, unspecified, uncomplicated (F17.200) Active confirmed Problem Information temporarily unavailable Constipation (K59.00) Active confirmed Problem Information temporarily unavailable Bipolar 2 disorder (F31.81) Active confirmed Problem Information temporarily unavailable Over weight (E66.3) Active confirmed Problem Information temporarily unavailable Overweight (BMI 25.0-29.9) (E66.3) Active confirmed Problem Information temporarily unavailable Opioid use disorder (F11.99) Active confirmed Problem Information temporarily unavailable Nicotine dependence with current use (F17.200) Active confirmed Vital Signs Heart Rate 84 /min 10/21/2025 Temperature 98.3 degrees Fahrenheit 12/29/2024 Respiratory Rate 16 /min 10/21/2025 Oximetry 98 % 10/21/2025 Blood pressure diastolic 70 mm Hg 10/21/2025 Height 61in in 10/21/2025 Blood pressure systolic 116 mm Hg 10/21/2025 Weight 195.6lbs lbs 10/21/2025 BMI 36.95 kg/m2 10/21/2025 Encounters Encounter Location Date Provider Diagnosis [address] [place] [address] 11/20/2024 Arif Habib Nicotine dependence, unspecified, uncomplicated F17.200 and Bipolar 2 disorder F31.[address] [place] [address] 12/29/2024 Arif Habib Nicotine dependence, unspecified, uncomplicated F17.200 and Bipolar 2 disorder F31.[address] [place] [address] 01/19/2025 Bahman Mcrae Opioid use disorder F11.[address] [address] 02/09/2025 Arif Habib Nicotine dependence, unspecified, uncomplicated F17.200 and Bipolar 2 disorder F31.[address] [address] 02/11/2025 Bahman Mcrae Opioid use disorder F11.[address] [address] 02/26/2025 Jenia Heavens Opioid use disorder F11.99 ; Overweight (BMI 25.0-29.9) E66.3 and Tobacco use disorder F17.[address] [address] 03/09/2025 Arif Habib Nicotine dependence, unspecified, uncomplicated F17.200 and Bipolar 2 disorder F31.[address] [address] 03/12/2025 Jenia Heavens Opioid use disorder F11.99 ; Overweight (BMI 25.0-29.9) E66.3 and Nicotine dependence with current use F17.[address] [address] 04/05/2025 Bahman Mcrae Opioid use disorder F11.99 [facility] [address] [address] 04/12/2025 Dejacecile Costello Opioid use disorder F11.[address] [address] 04/13/2025 Arif Habib Nicotine dependence, unspecified, uncomplicated F17.200 and Bipolar 2 disorder F31.[address] [address] 05/04/2025 Arif Habib Nicotine dependence, unspecified, uncomplicated F17.200 and Bipolar 2 disorder F31.81 [facility] [address] [address] 05/17/2025 Deja Tanwangco Opioid use disorder F11.99 and Nicotine dependence, unspecified, uncomplicated F17.[address] [place] [address] 06/01/2025 Arif Habib Nicotine dependence, unspecified, uncomplicated F17.200 and Bipolar 2 disorder F31.81 [facility] [address], [place] [address] 06/14/2025 Deja Tanwangco Opioid use disorder F11.[address] [place] [address] 07/20/2025 Bahman Mcrae Opioid use disorder F11.[address] [address] 08/20/2025 Bahman Mcrae Opioid use disorder F11.[address] [address] 08/24/2025 Arif Habib Over weight E66.3 ; Nicotine dependence, unspecified, uncomplicated F17.200 and Bipolar 2 disorder F31.81 [facility] [address] [place] [address] 09/17/2025 Jenia Heavens Opioid use disorder F11.[address] [place] [address] 10/19/2025 Arif Habib Over weight E66.3 ; Nicotine dependence, unspecified, uncomplicated F17.200 and Bipolar 2 disorder F31.[address] [place] [address] 10/21/2025 Jenia Heavens Opioid use disorder F11.[address] [place] [address] 11/20/2024 Arif Habib [address] [place] [address] 05/17/2025 Arif Habib Bipolar 2 disorder F31.[address] [place] [address] 08/11/2025 Niru Hdez Assessments Encounter Date Diagnosis (ICD Code) Assessment Notes Treatment Notes Treatment Clinical Notes Section Notes 11/20/2024 Nicotine dependence, unspecified, uncomplicated (ICD-10 - F17.200) 12/29/2024 Nicotine dependence, unspecified, uncomplicated (ICD-10 - F17.200) 01/19/2025 Opioid use disorder (ICD-10 - F11.99) 02/09/2025 Nicotine dependence, unspecified, uncomplicated (ICD-10 - F17.200) 02/11/2025 Opioid use disorder (ICD-10 - F11.99) DISCUSSED ADDING SUBOXONE 12-3 IN AM AND TAKING SUBOXONE 8-2 IN AFTERNOON AND EVENING. SHE WILL CALL IF THAT IS NOT EFFECTIVE. 02/26/2025 Overweight (BMI 25.0-29.9) (ICD-10 - E66.3) 02/26/2025 Opioid use disorder (ICD-10 - F11.99) buprenorphine increased as above due to reports of continued cravings. 03/09/2025 Nicotine dependence, unspecified, uncomplicated (ICD-10 - F17.200) 04/05/2025 Opioid use disorder (ICD-10 - F11.99) CONTINUE SUBOXONE UNTIL RX IS DUE. SWITCH TO BUPRENORPHINE 8 MG QID IN 7 DAYS. 04/12/2025 Opioid use disorder (ICD-10 - F11.99) 04/13/2025 Nicotine dependence, unspecified, uncomplicated (ICD-10 - F17.200) 03/12/2025 Overweight (BMI 25.0-29.9) (ICD-10 - E66.3) 03/12/2025 Opioid use disorder (ICD-10 - F11.99) 05/04/2025 Nicotine dependence, unspecified, uncomplicated (ICD-10 - F17.200) 05/17/2025 Nicotine dependence, unspecified, uncomplicated (ICD-10 - F17.200) 05/17/2025 Opioid use disorder (ICD-10 - F11.99) 05/17/2025 Bipolar 2 disorder (ICD-10 - F31.81) 06/01/2025 Nicotine dependence, unspecified, uncomplicated (ICD-10 - F17.200) 06/14/2025 Opioid use disorder (ICD-10 - F11.99) 07/20/2025 Opioid use disorder (ICD-10 - F11.99) 08/20/2025 Opioid use disorder (ICD-10 - F11.99) 08/24/2025 Over weight (ICD-10 - E66.3) 09/17/2025 Opioid use disorder (ICD-10 - F11.99) 10/19/2025 Over weight (ICD-10 - E66.3) 10/21/2025 Opioid use disorder (ICD-10 - F11.99) 10/19/2025 Nicotine dependence, unspecified, uncomplicated (ICD-10 - F17.200) 08/24/2025 Nicotine dependence, unspecified, uncomplicated (ICD-10 - F17.200) 06/01/2025 Bipolar 2 disorder (ICD-10 - F31.81) risk & benefits discussed. I have discussed in detail of pros & cons of these medicines in . I told her there is no safety guarantee of all these medicines in . Side effects discussed. Continue Gabapentin & Remeron as allowed by high risk doctor. On Sobutex 16 mg a day also. Pt is being followed with high risk clinic as referred by current Dr Joshua CLEMENTS. Her U/S and other labs are fine as per pt. 05/04/2025 Bipolar 2 disorder (ICD-10 - F31.81) risk & benefits discussed. I have discussed in detail of pros & cons of these medicines in . I told her there is no safety guarantee of all these medicines in . Side effects discussed. Continue Gabapentin & Remeron now. She already stopped Abilify, Prazosin, Clonidine. Pt has appointment with high risk clinic on 05/05/[address] Joshua CLEMENTS. Pt has all the medicines at home. No new rx given today. 03/12/2025 Nicotine dependence with current use (ICD-10 - F17.200) 04/13/2025 Bipolar 2 disorder (ICD-10 - F31.81) risk & benefits discussed. I have discussed in detail of pros & cons of these medicines in . I told her there is no safety guarantee of all these medicines in . Side effects discussed. Pt agreed to lower medicine slowly. Her Suboxone 32 mg a day was changed to Sobutex 8 mg QID now due to . Stop Prazosin 2 mg HS & continue Clinidine now. Continue Gabapentin 400 mg BID and stop 300 mg at noon. Pt has appointment with high risk clinic on 05/05/[address] Joshua CLEMENTS. Pt has all the medicines at home. No new rx given today. Will try to lower medicine again in 2 weeks. 03/09/2025 Bipolar 2 disorder (ICD-10 - F31.81) risk & benefits discussed. Continue current treatment. Side effects discussed. On suboxone 32 mg a day dose now. 02/26/2025 Tobacco use disorder (ICD-10 - F17.200) 02/09/2025 Bipolar 2 disorder (ICD-10 - F31.81) risk & benefits discussed. Continue current treatment. Side effects discussed. Increase Clonidine 0.2 mg HS as per pt request because it helps sleep.On suboxone 8mg BID 12/29/2024 Bipolar 2 disorder (ICD-10 - F31.81) risk & benefits discussed. Continue current treatment. Side effects discussed. Increase Clonidine 0.2 mg HS as per pt request because it helps sleep. 11/20/2024 Bipolar 2 disorder (ICD-10 - F31.81) risk & benefits discussed. Continue current treatment. Side effects discussed. Continue Clonidine 0.1 mg HS as per pt request because it helps sleep. 08/24/2025 Bipolar 2 disorder (ICD-10 - F31.81) risk & benefits discussed. I have discussed in detail of pros & cons of these medicines in . I told her there is no safety guarantee of all these medicines in . Side effects discussed. Continue Gabapentin & Remeron as allowed by high risk doctor. On Sobutex 12 mg a day now. 10/19/2025 Bipolar 2 disorder (ICD-10 - F31.81) risk & benefits discussed. I have discussed in detail of pros & cons of these medicines in . I told her there is no safety guarantee of all these medicines in . Side effects discussed. Continue Gabapentin & Remeron as allowed by high risk doctor. On Sobutex 8 mg a day now. Used to be on 32 mg a day dose. 02/26/2025 Other Discussed medication side effects, adverse effects, risks, benefits, as well as interactions. Encouraged non-use of opioids. Has naloxone. Recommended participation in recovery groups and/or counseling services. May contact office with questions or concerns. 03/12/2025 Other Discussed medication side effects, adverse effects, risks, benefits, as well as interactions. Encouraged non-use of opioids. Has naloxone. Recommended participation in recovery groups and/or counseling services. May contact office with questions or concerns. 04/12/2025 Other Patient agrees to take medication as prescribed. Discussed medication side effects, adverse effects, risks, benefits, as well as interactions. Encouraged non-use of opioids. Encouraged participation in recovery groups. Patient may contact office with questions or concerns. 05/17/2025 Other Patient agrees to take medication as prescribed. Discussed medication side effects, adverse effects, risks, benefits, as well as interactions. Encouraged non-use of opioids. Encouraged participation in recovery groups. Patient may contact office with questions or concerns. 06/14/2025 Other Patient agrees to take medication as prescribed. Discussed medication side effects, adverse effects, risks, benefits, as well as interactions. Encouraged non-use of opioids. Encouraged participation in recovery groups. Patient may contact office with questions or concerns. 09/17/2025 Other Discussed medication side effects, adverse effects, risks, benefits, as well as interactions. Encouraged non-use of opioids. Has naloxone. Recommended participation in recovery groups and/or counseling services. May contact office with questions or concerns. Patient may self-administer their own medications or may self-administer their own oral medications per [facility] Protocol. 10/21/2025 Other Discussed medication side effects, adverse effects, risks, benefits, as well as interactions. Encouraged non-use of opioids. Has naloxone. Recommended participation in recovery groups and/or counseling services. May contact office with questions or concerns. Patient may self-administer their own medications or may self-administer their own oral medications per [facility] Protocol. Plan Of Treatment Next Appt Details Provider Name:Niru Hdez, 01:00:00 PM, [address], [place], [address], Insurance Providers Payer Name Payer Address Payer Phone Subscriber Number Group Number Insured Name Patient Relationship to Insured Coverage Start Date Coverage End Date [facility] [address] [place] [address] [id number] Nidia Carrasco Self - patient is the insured 2 MEDICAID [address] [place] [address] [id number] Paige oliva Nidia Self - patient is the insured 5 Medical (General) History Medical History History ICD Code Bipolar disorder Generalized anxiety disorder Cannabis use disorder OUD Surgical History Surgery Date(Month/Year) abcess removal right leg 2018 wisdom teeth removed Hospitalization History Reason Date(Month/Year) [facility] Jeffery JAN 2023 [facility] 2021
[2025-10-30] MEDS: ACETAMINOPHEN 500 MG TABLET 1000 MG PO (17:11)
[2025-10-30 17:15] LABS: Hematocrit 38.5 % (37.0-47.0); Hemoglobin 13.1 g/dL (12.0-15.0); Immature Granulocyte Percent A 0.5 % (0-0.5); Lymphocytes Absolute Auto 2.40 K/mm3 (0.9-3.2); Mean Corpuscular HGB Conc 34.0 g/dl (32-36); Mean Corpuscular Hemoglobin 31.3 pg (26-34); Mean Corpuscular Volume 92.1 fl (80-100); Nucleated Red Blood Cells Absolute Auto 0.000 K/mm3 (0.0-0.012); Nucleated Red Blood Cells Perc 0.0 % (0.0-0.2); Platelet Count Result 200 k/mm3 (150-375); Red Blood Count 4.18 M/mm3 (4.2-5.4); White Blood Count 9.4 K/mm3 (4.5-10.0)
[2025-10-30 17:28] LABS: Alanine Aminotransferase 16 U/L (6-35); Albumin Level 3.8 g/dL (3.5-5.1); Alkaline Phosphatase 114 U/L (38-126); Anion Gap 7 mmol/L (4-12); Aspartate Amino Transferase 20 U/L (14-36); Bilirubin,Total 0.3 mg/dL (0.2-1.3); Blood Urea Nitrogen 5 mg/dL (7-17); Calcium 9.7 mg/dL (8.4-10.2); Carbon Dioxide 21 mmol/L (22-30); Chloride 105 mmol/L (98-107); Estimated Glomerular Filt Rate > 60; Glucose 93 mg/dL (65-110); Sodium 133 mmol/L (137-145); Total Protein 7.4 g/dL (6.3-8.2); Uric Acid 4.2 mg/dL (2.5-7.5)
[2025-10-30 17:34] LABS: Potassium 3.6 mmol/L (3.4-5.0)
--- NOTE | 2025-10-30 17:40 | PC.NURSE ---
Pt presented to the unit at 1621 for an NST due to PIH. Pt reported to RN that she had a headache that has been off and on for several days accompanied with blurry vision and dark spots. Pt reports painful swelling in bilateral lower extremities. Pt reports she currently has a headache pain level 5 out of 10 and reports her vision is fuzzy. Dr. Arambula was notifed at 1643 or the patients reported symptoms. Lab results from last two visits were also reported. BP's WNL and patient has reactive FHTs. Orders for medication and labs recieved. Orders read back to the provider. Orders confirmed by provider and verified by RN. See EMR.
[2025-10-30 17:55] LABS: Total Protein Urine Random 15 mg/dL; Ur Ttl Prot Creatinine Ratio 0.21 mg/mg (0-0.20)
[2025-10-30 18:01] LABS: Add Urine Microscopic? YES; Appearance Urine Cloudy (Clear); Glucose Urine UA Negative (Negative); Leukocyte Esterase Ur Negative LEU/UL (Negative); Need Manual Microscopic Reviewed; Nitrate Urine Negative (Negative); Non Pathogenic Casts 0-2; Specific Grav Ur 1.017 (1.001-1.035)
--- NOTE | 2025-10-30 18:23 | PC.NURSE ---
notified at 1804 of lab results and pain 310 after medication. Ok to d/c home with continued use of tylenol for headaches and monitoring blood pressures. Pt to keep scheduled NSTs and OB appointments. Pt instructed on PIH symptoms and when to return. Pt to keep scheduled NSTs and OB appointment. Pt agreeable to plan of care and verbalized understanding.
== END 2025-10-30 18:25 | disposition home or self-care (01) ==
LOC: ANHOBOP 16:51 → ANHLDR 16:56
PROVIDERS: Obstetrics & Gynecology; Visit Provider Obstetrics & Gynecology
DX: O13.9 Gestational [pregnancy-induced] hypertension without significant proteinuria, unspecified trimester (principal); Z3A.00 Weeks of gestation of pregnancy not specified
CPT/HCPCS: 36415; 59025; 80053; 81001; 82570; 84156; 84550; 85025; A9270

== ENCOUNTER 2025-11-12 17:00 | Observation (INO) | payer OTHER, MEDICAID, SELFPAY ==
--- NOTE | ~2025-11-12 | US_ITS ---
EXAMINATION: Ultrasound uterus OB, Limited, biophysical profile: DATE: 11/12/2025 INDICATION: 24-year-old primigravida with expected date of delivery on 11/27/2025. Follow-up of abnormal biophysical score of 4/8 earlier today with absent breathing and movement. TECHNIQUE: Limited ultrasound examination with biophysical profile score. COMPARISON: Previous biophysical profile score examination of 11/12/2025. FINDINGS: Single live fetus in cephalic presentation. movement is definitely noted. breathing motion also was noted. Biophysical profile score on this examination is 8/8 with breathing, score of 2/2, movement score of 2/2, tone of 2/2 and amniotic fluid volume of 2/2. Amni otic fluid index at 14.4 cm. IMPRESSION: 1. Single live fetus in cephalic presentation, 38 minus weeks of established gestational age. 2. Biophysical profile score is at 8/8. breathing and movement were noted. 3. Amniotic fluid index of 14.4 cm. Reviewed, dictated and finalized at location T. ERT OR LECTURE HALL MANAGER IMPRESSION: 1. Single live fetus in cephalic presentation, 38 minus weeks of established ge stational age. 2. Biophysical profile score is at 8/8. breathing and movement were noted. 3. Amniotic fluid index of 14.4 cm.
--- NOTE | 2025-11-12 17:06 | PC.NURSE ---
1648- RN notified Dr. Burleson of patient's BPP results, NST tracing with moderate variability as well as accelerations. RN notified MD of patient's blood pressure. RN notified MD of [facility] labs. RN also notified MD of the reason patient is getting testing done and her history. MD gave orders to do continuous monitoring until BPP is repeated in 2 hours and to call back with results. MD gave orders for a regular diet.
--- OUTSIDE RECORDS SUMMARY | 2025-11-12 17:07 | XMS_ITS | Patient Health Record ---
Author Organization [facility] Address [address] [place] [address] Phone [phone] Care Team Providers Care Equipment Installation Professional Name Role Phone Lemuel CHATTERJEE, Niru Primary Care Provider [phone] Margareth Charles APRN Unavailable Bahman Mcrae Unavailable [phone] Deja Costello APRN Unavailable Allergies No Known Allergies Results Component Value Reference Range Notes 12 Panel Urine Drug Screen Order date: 02/26/2025 Reviewed date:02/26/2025 10:19:14 AM Interpretation: Performing Lab: Notes/Report: THC POS IVANIA neg MOP (OPI) neg AMP neg MET neg BAR neg BZO neg MDMA neg MTD neg OXY POS PCP neg BUP POS 12 Panel Urine Drug Screen Order date: 04/12/2025 Reviewed date:04/12/2025 09:59:41 AM Interpretation: Performing Lab: Notes/Report: THC POS IVANIA neg MOP (OPI) neg AMP neg MET neg BAR neg BZO neg MDMA neg MTD neg OXY neg PCP neg BUP POS 14 Panel Urine Drug Screen Order date: 07/20/2025 Reviewed date:07/20/2025 01:22:29 PM Interpretation: Performing Lab: Notes/Report: THC POS IVANIA neg MOP (OPI) neg AMP neg MET neg BAR neg BZO neg MDMA neg MTD neg OXY neg PCP neg BUP POS TCA neg FTY neg 14 Panel Urine Drug Screen Order date: 08/20/2025 Reviewed date:08/20/2025 10:46:24 AM Interpretation: Performing Lab: Notes/Report: THC pos IVANIA neg MOP (OPI) neg AMP neg MET neg BAR neg BZO neg MDMA neg MTD neg OXY neg PCP neg BUP pos TCA neg FTY neg 14 Panel Urine Drug Screen Order date: 09/17/2025 Reviewed date:09/17/2025 01:43:30 PM Interpretation: Performing Lab: Notes/Report: THC POS IVANIA neg MOP (OPI) neg AMP neg MET neg BAR neg BZO neg MDMA neg MTD neg OXY neg PCP neg BUP POS TCA neg FTY neg 14 Panel Urine Drug Screen Order date: 10/21/2025 Reviewed date:10/21/2025 10:43:05 AM Interpretation: Performing Lab: Notes/Report: THC neg IVANIA neg MOP (OPI) neg AMP neg MET neg BAR neg BZO neg MDMA neg MTD neg OXY neg PCP neg BUP POS TCA neg FTY neg 14 Panel Urine Drug Screen Order date: 06/14/2025 Reviewed date:06/14/2025 10:56:04 AM Interpretation: Performing Lab: Notes/Report: THC POS IVANIA neg MOP (OPI) neg AMP neg MET neg BAR neg BZO neg MDMA neg MTD neg OXY neg PCP neg BUP POS TCA neg FTY neg 12 Panel Urine Drug Screen Order date: 03/12/2025 Reviewed date:03/12/2025 09:11:50 AM Interpretation: Performing Lab: Notes/Report: THC POS IVANIA neg MOP (OPI) neg AMP neg MET neg BAR neg BZO neg MDMA neg MTD neg OXY neg PCP neg BUP POS 12 Panel Urine Drug Screen Order date: 02/11/2025 Reviewed date:02/11/2025 03:41:50 PM Interpretation: Performing Lab: Notes/Report: THC POS IVANIA neg MOP (OPI) neg AMP neg MET neg BAR neg BZO neg MDMA neg MTD neg OXY neg PCP neg BUP POS 14 Panel Urine Drug Screen Order date: 05/17/2025 Reviewed date:05/17/2025 09:32:49 AM Interpretation: Performing Lab: Notes/Report: THC POS IVANIA neg MOP (OPI) neg AMP neg MET neg BAR neg BZO neg MDMA neg MTD neg OXY neg PCP neg BUP POS TCA neg FTY neg 12 Panel Urine Drug Screen Order date: 04/05/2025 Reviewed date:04/05/2025 09:51:21 AM Interpretation: Performing Lab: Notes/Report: THC POS IVANIA neg MOP (OPI) neg AMP neg MET neg BAR neg BZO neg MDMA neg MTD neg OXY neg PCP neg BUP POS 12 Panel Urine Drug Screen Order date: 01/19/2025 Reviewed date:01/19/2025 08:57:11 AM Interpretation: Performing Lab: Notes/Report: THC POS IVANIA neg MOP (OPI) neg AMP neg MET neg BAR neg BZO neg MDMA neg MTD neg OXY neg PCP neg BUP POS Reason For Referral No Information Medications Medication SIG (Take, Route, Frequency, Duration) Notes Start Date End Date Diagnosis (ICD Code) Status Buprenorphine HCl 8 MG Tablet Sublingual 1.5 tablet under the tongue and allow to dissolve Sublingual daily; Duration: 30 days 10/21/2025 Opioid use disorder (ICD_10 - F11.99) Active Mirtazapine 15 MG Tablet 1 tablet at bedtime Orally Once a day; Duration: 30 days Bipolar 2 disorder (ICD_10 - F31.81) Active Gabapentin 400 MG Capsule 1 capsule Orally twice a day; Duration: 30 days Bipolar 2 disorder (ICD_10 - F31.81) Active Social History Tobacco Use: Social History Observation Description Date Details (start date - stop date) Never Smoker NA - NA Sex Observation Social History Observation Description Sex Observation Female Sexual Orientation Social History Observation Description Sexual Orientation Bisexual Gender Identity Social History Observation Description Gender Identity Female SDOH Assessments Date Tool Assessment Assessment LOINC Value Assessment Notes Goals Interventions 12/29/19 25 PRAPARE (LOINC: 23425-7) Total Score: 7 Date Completed/Upda veronica: 06/25/20 24 What is your current housing situation? 27776-6 I have housing (CW91421-1) Are you worried about losing your housing? 18761-7 No (LA32-8) What is the highest level of school that you have finished? 38996-8 Less than a high school degree (YS24734-1) What is your current work situation? 38554-2 Unemployed and seeking work (SP00782-0) In the past year, have you o r any family members you live with been unable to get any of the following when it was really needed? Check all that apply 53236-1 I do not have problems meeting my needs Has lack of transportation k ept you from medical appointments, meetings, work or from getting things needed for daily living? 75328-7 Yes, it has kept me from non-medical meetings, appointments, work, or getting things needed for daily living (QH21704-4) Yes, it has kept me from medical appointments or from getting my medications (GW19545-1) How often do you see or talk to people that you care about and feel close to? (For example: talking to friends on the phone, visiting friends or family, going to mandaen or club meetings) 78262-9 More than 5 times a week (ES26397-9) How stressed are you? Stress is when someone feels tense, nervous, anxious, or can\t sleep at night because their mind is troubled 03534-1 Somewhat (YS33206-8) In the past year have you sp ent more than 2 nights in a row in a usp, halfway, skilled nursing center, or juvenile correctional facility? 18956-9 No (LA32-8) Do you feel physically and emotionally safe where you currently live? 04023-2 Yes (LA33-6) In the past year, have you b een afraid of your partner or ex-partner? 96495-9 No (LA32-8) Are you a refugee? No What country are you from? [place] PRAPARE Score: 7 Social History Miscellaneous Social Info Question Answer Notes Method of learning: Preferred method of learning: Reading,Discussion,Demonstra tion,Hearing Primary Social History Social Info Question Answer Notes Living Arrangement Living Arrangement: Dependent Marcelino jorge Living with: Parent(s) Single Question Alcohol Screening How ma ny times in the past year have you had (4 for women, or 5 for men) or more drinks in a day? 0 Employment Status Employment Status: Unemployed Illicit Substance Usage Illicit Substance Usage: Yes Interested in quitting: Yes Alcohol Use Alcohol Use Frequency: Never Tobacco Use: Social Info Question Answer Notes Tobacco Control (Standard) Tobacco use: Nonsmoker Problems Problem Type SNOMED Code ICD Code Dates Problem Status W/U Status Risk Notes Problem Tobacco user (770774669) Nicotine dependence, unspecified, uncomplicated (F17.200) Added On:2024 Active confirmed Problem Constipation (64589812) Constipation (K59.00) Added On:2023 Active confirmed Problem Bipolar 2 disorder (26053263) Bipolar 2 disorder (F31.81) Added On:2021 Active confirmed Problem Overweight (285482678) Over weight (E66.3) Added On:2024 Active confirmed Problem Overweight (280074118) Overweight (BMI 25.0-29.9) (E66.3) Added On:2023 Active confirmed Problem Opioid use disorder (7187089526) Opioid use disorder (F11.99) Added On:2023 Active confirmed Problem Tobacco user (635647439) Nicotine dependence with current use (F17.200) Added On:2024 Active confirmed Vital Signs Vital Sign Value Notes Appt Date Heart Rate 84 /min 10/21/2025 Temperature 98.3 degrees Fahrenheit 12/03 Respiratory Rate 16 /min 10/21/2025 Oximetry 98 % 10/21/2025 Blood pressure diastolic 70 mm Hg Height 61in in 10/21/2025 Blood pressure systolic 116 mm Hg 10/03 Weight 195.6lbs lbs 10/21/2025 BMI 36.95 kg/m2 10/21/2025 Encounters Date Time Type Facility Location Provider Diagnosis 11/20/20 24 03:20 PM BEHAV CHNG SMOKING 3-10 MIN (06770) [address] [place] [address] Arif Habib Nicotine dependence, unspecified, uncomplicated F17.200 and Bipolar 2 disorder F31.81 12/29/19 25 01:50 PM Office Visit, Est Pt., Level 3 (35262) [address] [address] Arif Habib Nicotine dependence, unspecified, uncomplicated F17.200 and Bipolar 2 disorder F31.81 01/19/20 25 09:20 AM Office Visit, Est Pt., Level 3 (19003) [address] [place] [address] Bahman Mcrae Opioid use disorder F11.99 02/10/20 25 08:20 AM Telehealth Office Visit, Est Pt., Level 3 (37145) [address] [address] Arif Habib Nicotine dependence, unspecified, uncomplicated F17.200 and Bipolar 2 disorder F31.81 02/12/20 25 02:20 PM Office Visit, Est Pt., Level 3 (12666) [address] [address] Bahman Mcrae Opioid use disorder F11.99 02/27/20 25 10:00 AM MEDICAL [place] ([address]) [address] [address] Margareth Heaveyevgeniy Opioid use disorder F11.99 ; Overweight (BMI 25.0-29.9) E66.3 and Tobacco use disorder F17.200 03/09/20 25 01:30 PM Office Visit, Est Pt., Level 3 (62878) [address] [address] Arif Habib Nicotine dependence, unspecified, uncomplicated F17.200 and Bipolar 2 disorder F31.81 03/12/20 25 09:00 AM MEDICAL N[place] ([address]) [address] [address] Jenia Heavens Opioid use disorder F11.99 ; Overweight (BMI 25.0-29.9) E66.3 and Nicotine dependence with current use F17.200 04/05/20 25 09:40 AM Office Visit, Est Pt., Level 3 (67670) [address] [address] Bahman Mcrae Opioid use disorder F11.99 04/12/20 25 09:20 AM MEDICAL N[place]ITION[place] ([address]) [address] [address] Deja Tanwangco Opioid use disorder F11.99 04/13/20 25 10:30 AM Office Visit, Est Pt., Level 4 (86281) [address] [address] Arif Habib Nicotine dependence, unspecified, uncomplicated F17.200 and Bipolar 2 disorder F31.81 05/04/20 25 09:30 AM Telehealth Office Visit, Est Pt., Level 3 (03484) [address] [address] Arif Habib Nicotine dependence, unspecified, uncomplicated F17.200 and Bipolar 2 disorder F31.81 05/17/20 25 09:40 AM SPECIMEN HANDLING (48494) [facility] [address] [address] Deja Tanwangco Opioid use disorder F11.99 and Nicotine dependence, unspecified, uncomplicated F17.200 06/01/20 25 09:30 AM Office Visit, Est Pt., Level 3 (47860) [address] [address] Arif Habib Nicotine dependence, unspecified, uncomplicated F17.200 and Bipolar 2 disorder F31.81 06/14/20 25 10:40 AM [place]ICAL [place] ([address]) [address] [address] Deja Tanwangco Opioid use disorder F11.99 07/20/20 25 01:00 PM Office Visit, Est Pt., Level 3 (86983) [address] [address] Bahman Mcrae Opioid use disorder F11.99 08/20/20 25 10:40 AM Office Visit, Est Pt., Level 3 (93886) [address] [address] Bahman Mcrae Opioid use disorder F11.99 08/24/20 25 01:20 PM Office Visit, Est Pt., Level 3 (95196) [address] [address] Arif Habib Over weight E66.3 ; Nicotine dependence, unspecified, uncomplicated F17.200 and Bipolar 2 disorder F31.81 09/17/20 25 01:20 PM SPECIMEN HANDLING (68380) [facility] [address] [place] [address] [place] [address] Paolarosy Deshpandeyared Opioid use disorder F11.99 10/19/20 25 02:00 PM Office Visit, Est Pt., Level 3 (52928) [address] [address] Arif Habib Over weight E66.3 ; Nicotine dependence, unspecified, uncomplicated F17.200 and Bipolar 2 disorder F31.81 10/21/20 25 10:00 AM Office Visit, Est Pt., Level 3 (05550) [address] [address] Jenrosy Heyared Opioid use disorder F11.99 11/20/20 24 02:05 PM Telephone Encounter [address] [address] Arif Habib 05/17/20 25 09:47 AM Telephone Encounter [address] [address] Arif Habib Bipolar 2 disorder F31.81 08/11/20 25 12:51 PM Telephone Encounter [address] [address] Arif Habib Assessments Encounter Date Diagnosis (ICD Code) Assessment Notes Treat ment Notes Section Notes 02/09/2025 Nicotine dependence, unspecified, uncomplicated (ICD-10 - F17.200) 03/09/2025 Nicotine dependence, unspecified, uncomplicated (ICD-10 - F17.200) 04/13/2025 Nicotine dependence, unspecified, uncomplicated (ICD-10 - F17.200) 05/04/2025 Nicotine dependence, unspecified, uncomplicated (ICD-10 - F17.200) 05/17/2025 Nicotine dependence, unspecified, uncomplicated (ICD-10 - F17.200) 06/01/2025 Nicotine dependence, unspecified, uncomplicated (ICD-10 - F17.200) 11/20/2024 Nicotine dependence, unspecified, uncomplicated (ICD-10 - F17.200) 12/29/2024 Nicotine dependence, unspecified, uncomplicated (ICD-10 - F17.200) 05/17/2025 Bipolar 2 disorder (ICD-10 - F31.81) 08/24/2025 Over weight (ICD-10 - E66.3) 10/19/2025 Over weight (ICD-10 - E66.3) 06/14/2025 Opioid use disorder (ICD-10 - F11.99) 07/20/2025 Opioid use disorder (ICD-10 - F11.99) 08/20/2025 Opioid use disorder (ICD-10 - F11.99) 09/17/2025 Opioid use disorder (ICD-10 - F11.99) 10/21/2025 Opioid use disorder (ICD-10 - F11.99) 02/11/2025 Opioid use disorder (ICD-10 - F11.99) 02/26/2025 Opioid use disorder (ICD-10 - F11.99) buprenorphine increased as above due to reports of continued cravings. 03/12/2025 Opioid use disorder (ICD-10 - F11.99) 04/05/2025 Opioid use disorder (ICD-10 - F11.99) 04/12/2025 Opioid use disorder (ICD-10 - F11.99) 05/17/2025 Opioid use disorder (ICD-10 - F11.99) 01/19/2025 Opioid use disorder (ICD-10 - F11.99) 02/26/2025 Overweight (BMI 25.0-29.9) (ICD-10 - E66.3) 03/12/2025 Overweight (BMI 25.0-29.9) (ICD-10 - E66.3) 02/26/2025 Tobacco use disorder (ICD-10 - F17.200) 03/12/2025 Nicotine dependence with current use (ICD-10 - F17.200) 11/20/2024 Bipolar 2 disorder (ICD-10 - F31.81) risk & benefits discussed. Continue current treatment. Side effects discussed. Continue Clonidine 0.1 mg HS as per pt request because it helps sleep. 12/29/2024 Bipolar 2 disorder (ICD-10 - F31.81) risk & benefits discussed. Continue current treatment. Side effects discussed. Increase Clonidine 0.2 mg HS as per pt request because it helps sleep. 02/09/2025 Bipolar 2 disorder (ICD-10 - F31.81) risk & benefits discussed. Continue current treatment. Side effects discussed. Increase Clonidine 0.2 mg HS as per pt request because it helps sleep.On suboxone 8mg BID 03/09/2025 Bipolar 2 disorder (ICD-10 - F31.81) risk & benefits discussed. Continue current treatment. Side effects discussed. On suboxone 32 mg a day dose now. 06/01/2025 Bipolar 2 disorder (ICD-10 - F31.81) [...] with high risk clinic as referred by Dr Joshua Jones. Her U/S and other labs are fine as per pt. 08/24/2025 Nicotine dependence, unspecified, uncomplicated (ICD-10 - F17.200) 10/19/2025 Nicotine dependence, unspecified, uncomplicated (ICD-10 - F17.200) 04/13/2025 Bipolar 2 disorder [...] risk clinic on 05/05/[address] Joshua Jones. Pt has all the medicines at home. No new rx given today. Will try to lower medicine again in 2 weeks. 05/04/2025 Bipolar 2 disorder (ICD-10 - F31.81) [...] risk clinic on 05/05/[address] Joshua Jones. Pt has all the medicines at home. No new rx given today. 08/24/2025 Bipolar 2 disorder (ICD-10 - F31.81) [...] be on 32 mg a day dose. 04/12/2025 Other Patient agrees to take medication as prescribed. Discussed medication side effects, adverse effects, risks, benefits, as well as interactions. Encouraged non-use of opioids. Encouraged participation in recovery groups. Patient may contact office with questions or concerns. 02/26/2025 Other Discussed medication side effects, adverse [...] May contact office with questions or concerns. 05/17/2025 [...] May contact office with questions or concerns. 10/21/2025 Other Discussed medication side effects, adverse effects, risks, benefits, as well as interactions. Encouraged non-use of opioids. Has naloxone. Recommended participation in recovery groups and/or counseling services. May contact office with questions or concerns. Plan Of Treatment Next Appt Details Provider Name:Niru Hdez, 01:00:00 PM, [address] [facility] [address], [place], [address], Provider Name:Sandhya Rendon , 12/22/2025 09:20:00 AM, [address] [place] [address], [address], Insurance Providers Payer Name Payer Address Payer Phone Subscriber Number Group Number Insured Name Patient Relationship to Insured Coverage Start Date Coverage End Date [facility] [address] [place] [address] [id number] Marycarmendenys s Nidia Self - patient is the insured 2 MEDICAID [address] [address] [id number] Hutdenys s Nidia Self - patient is the insured 5 Medical (General) History Medical History History ICD Code Bipolar disorder Generalized anxiety disorder Cannabis use disorder OUD Surgical History Surgery Date(Month/Year) abcess removal right leg 2019 wisdom teeth removed Hospitalization History Reason Date(Month/Year) [facility] Jeffery JAN 2023 [facility] 2021
--- OUTSIDE RECORDS SUMMARY | 2025-11-12 17:08 | XMS_ITS | Clinical Summary ---
Author Organization [facility] Address Formerly [facility] [place] [address] Care Team Providers Care Roll Reclaimer Name Role Phone Patricia Brooks PA-C Primary Care Provider [phone] Allergies No known active allergies Medications omeprazole [...] patient's age to complete this topic Insurance [facility] Care Teams Roll Reclaimer Relationship Specialty Start Date End Date Patricia Brooks PA-C [address] [place] [id number] PCP - General PHYSICIAN THAI MASSEUR 08/16/21
--- OUTSIDE RECORDS SUMMARY | 2025-11-12 17:08 | XMS_ITS | Clinical Summary ---
Author Organization [facility] [place] [address] Address [address] [place] [address] Care Team Providers Care Property Management Specialist Name Role Phone Satnam Matute NP Primary Care Provider [phone] Allergies No known active allergies Medications buprenorphine-nalox [...] Department Care Team Description 10/09/2025 9:26 AM SALES AND SERVICE AGENT - 10/09/2025 11:25 AM SALES AND SERVICE AGENT Hospital Encounter [facility] [address] [place] [address] Neyda Pham MD Discharge Disposition: Discharge to home or self care 10/09/2025 9:13 AM SALES AND SERVICE AGENT - 10/09/2025 11:10 AM SALES AND SERVICE AGENT Emergency [facility] Emergency Department [address] [place] [address] Discharge Disposition: Still a patient from Last 3 Months Family History Medical [...] often do you attend chur ch or methodist services? Never 10/09/2025 Do you belong to any clubs o r organizations such as caodaism groups, unions, fraternal or athletic groups, or [...] heating? Not hard at all 10/09/2025 [facility] - Occupational Stress [...] any time in the past 12 m [facility], were you homeless or living in a half-way (including now)? No 10/09/2025 [facility] Utilities Answer Date Recorded In the past 12 months has e electric, gas, oil, or water company [...] on file Legal Sex Female 8:17 AM SALES AND SERVICE AGENT Gender Identity Not on file Sexual Orientation Not on file Obstetrics History Para Term AB IAB SAB Ectopic Multiple Livin g Live Births 1 Date Outcome GA Total Labor Labor/2nd/3rd Weight Sex Type Anes PTL Iman A1 A5 Name Clin Current Summary Episode Dates Number of Fetuses Estimated Date of Delivery 08/02/2025 - Present (11/12/2025) 11/27/2025 (based on Alternate DENIS Entry) Dating Summary Based On DENIS GA Diff Alternate DENIS Entry 11/27/2025 Working Comment:Date entered prior t o episode creation Vitals Pregravid Weight Height TWG (As of 11/12/2025) Pregrav id BMI 154.9 cm (5' 1) Date GA Fund Present FHR Mvmt BP Weight Edema Alb Glu Ket Dil/ Eff/Sta 5 23w2d Inpatient data not displayed here. See encounter summary. 5 33w0d Inpatient data not displayed here. See encounter summary. Last Filed Vital Signs Vital Sign Reading Time Taken Comments Blood Pressure 124/82 10/09/2025 11:03 AM SALES AND SERVICE AGENT Pulse 111 10/09/2025 11:03 AM SALES AND SERVICE AGENT Temperature 36.1 C (96.9 F) 10/09/2025 9:36 AM SALES AND SERVICE AGENT Respiratory Rate 16 10/09/2025 9:16 AM SALES AND SERVICE AGENT Oxygen Saturation 100% 10/09/2025 9:16 AM SALES AND SERVICE AGENT Inhaled Oxygen Concentration - - Weight 77.1 kg (170 lb) 08/02/2025 10:29 AM CDT Height 154.9 cm (5' 1) 08/02/2025 10:29 AM CDT Body Mass Index 32.12 08/02/2025 10:29 AM CDT Plan of Treatment Upcoming Encounters Date Type Department Care Team (Late st Contact Info) Description 11/27/2025 Hospital Encounter [facility] [address] [place] [address] Neyda Pham MD [address] [place] [address] Health Maintenance Due Date Last Done Comments [...] PROTEIN MARKER (ROM) Routine 10/09/2025 10:02 AM SALES AND SERVICE AGENT from Last 3 Months Results * ROM Plus (IGFBP-1/AFP) (10/09/2025 10:02 AM SALES AND SERVICE AGENT) IFG Binding Protein-1 / AFP Negative Swab 10/09/2025 10:0 2 AM SALES AND SERVICE AGENT 10/09/2025 10:12 AM SALES AND SERVICE AGENT us Neyda Pham MD LAB BODY FLUIDS AND S TOOLS ORDERABLES Final Result [facility]) [address] [facility] Department of Laboratories [place] [id number] from Last 3 Months Insurance [facility] H[facility]/PPO Address: [address] [address] [place] [address] [facility]/PPO Address: [address] [address] [place] [address] Care Teams Property Management Specialist Relationship Specialty Start Date End Date Satnam Matute NP [address] [address] PCP - General Nurse Practitioner 03/21/22
[2025-11-12 17:37] VITALS: BMI 39.3
--- NOTE | 2025-11-12 17:37 | OBADM ---
This patient, Nidia Mays, admitted to the OB room OB Post 116 for observation. Patient/family oriented to hospital policies and general routines including ID bracelet, bed and alarms, visiting hours, pain management, procedures, bathroom and other care routines, personal items, smoking policy, room service/diet, and visiting hours. Patient/Family are encouraged to report perceived risks to care and to ask questions if they do not understand what they are told or what they should do.
[2025-11-12 18:00] VITALS: BP 130/90; PULSE 99
--- NOTE | 2025-11-12 19:21 | PC.NURSE ---
Repeat BPP 07/09. Dr. Benjy eid with discharge, pt to return tomorrow for repeat NST and BPP. Scheduled for 1030. Return precautions given, pt verbalized understanding.
--- NOTE | 2025-12-08 20:35 | PM.OBTRLD ---
OB - Triage/Final Diagnosis Visit Information Comments/Additional reasons for admission: I have assessed the risk for this patient, Nidia Mays, and determined that she would benefit from observation care. Final Diagnosis (1) Non-stress test reactive on surveillance: Code(s): Z36.89 - Encounter for other specified screening Status: Acute
== END 2025-11-12 19:18 | disposition home or self-care (01) ==
PROVIDERS: Admitting Provider Obstetrics & Gynecology; Visit Provider Obstetrics & Gynecology
DX: O36.8330 Maternal care for abnormalities of the fetal heart rate or rhythm, third trimester, not applicable or unspecified (principal); Z3A.37 37 weeks gestation of pregnancy
CPT/HCPCS: 76819; G0378; G0379

== ENCOUNTER 2025-11-13 10:52 | Outpatient (RCR) | payer OTHER, MEDICAID, SELFPAY ==
[2025-11-01 16:09] LABS: Hematocrit 35.5 % (37.0-47.0); Hemoglobin 12.2 g/dL (12.0-15.0); Immature Granulocyte Percent A 0.4 % (0-0.5); Lymphocytes Absolute Auto 2.14 K/mm3 (0.9-3.2); Mean Corpuscular HGB Conc 34.4 g/dl (32-36); Mean Corpuscular Hemoglobin 31.5 pg (26-34); Mean Corpuscular Volume 91.7 fl (80-100); Nucleated Red Blood Cells Absolute Auto 0.000 K/mm3 (0.0-0.012); Nucleated Red Blood Cells Perc 0.0 % (0.0-0.2); Platelet Count Result 188 k/mm3 (150-375); Red Blood Count 3.87 M/mm3 (4.2-5.4); White Blood Count 8.4 K/mm3 (4.5-10.0)
[2025-11-01 16:27] LABS: Add Urine Microscopic? YES; Appearance Urine Clear (Clear); Glucose Urine UA Negative (Negative); Leukocyte Esterase Ur Negative LEU/UL (Negative); Nitrate Urine Negative (Negative); Non Pathogenic Casts 0-2; Specific Grav Ur 1.013 (1.001-1.035)
[2025-11-01 16:29] LABS: Alanine Aminotransferase 16 U/L (6-35); Albumin Level 3.4 g/dL (3.5-5.1); Alkaline Phosphatase 104 U/L (38-126); Anion Gap 4 mmol/L (4-12); Aspartate Amino Transferase 19 U/L (14-36); Bilirubin,Total 0.2 mg/dL (0.2-1.3); Blood Urea Nitrogen 5 mg/dL (7-17); Calcium 9.4 mg/dL (8.4-10.2); Carbon Dioxide 22 mmol/L (22-30); Chloride 107 mmol/L (98-107); Estimated Glomerular Filt Rate > 60; Glucose 108 mg/dL (65-110); Potassium 3.7 mmol/L (3.4-5.0); Sodium 133 mmol/L (137-145); Total Protein 6.7 g/dL (6.3-8.2); Total Protein Urine Random 13 mg/dL; Ur Ttl Prot Creatinine Ratio 0.24 mg/mg (0-0.20); Uric Acid 4.2 mg/dL (2.5-7.5)
--- NOTE | 2025-11-01 16:35 | PC.NURSE ---
Dr. Lewis returned call. Informed of labs, BPs and reactive tracing. Pt complaining of headache and spots in vision. April D/C home on bedrest. Follow up with labs and NST here.
[2025-11-01 16:42] VITALS: BP 129/86; PULSE 115
[2025-11-04 17:29] LABS: Hematocrit 36.0 % (37.0-47.0); Hemoglobin 12.2 g/dL (12.0-15.0); Immature Granulocyte Percent A 0.3 % (0-0.5); Lymphocytes Absolute Auto 2.05 K/mm3 (0.9-3.2); Mean Corpuscular HGB Conc 33.9 g/dl (32-36); Mean Corpuscular Hemoglobin 31.0 pg (26-34); Mean Corpuscular Volume 91.4 fl (80-100); Nucleated Red Blood Cells Absolute Auto 0.000 K/mm3 (0.0-0.012); Nucleated Red Blood Cells Perc 0.0 % (0.0-0.2); Platelet Count Result 204 k/mm3 (150-375); Red Blood Count 3.94 M/mm3 (4.2-5.4); White Blood Count 9.7 K/mm3 (4.5-10.0)
[2025-11-04 17:32] LABS: Add Urine Microscopic? YES; Appearance Urine Turbid (Clear); Glucose Urine UA Negative (Negative); Leukocyte Esterase Ur Negative LEU/UL (Negative); Nitrate Urine Negative (Negative); Non Pathogenic Casts 0-2; Specific Grav Ur 1.013 (1.001-1.035)
[2025-11-04 17:42] LABS: Total Protein Urine Random 12 mg/dL; Ur Ttl Prot Creatinine Ratio 0.22 mg/mg (0-0.20)
[2025-11-04 17:42] LABS: Alanine Aminotransferase 23 U/L (6-35); Albumin Level 3.6 g/dL (3.5-5.1); Alkaline Phosphatase 106 U/L (38-126); Anion Gap 6 mmol/L (4-12); Aspartate Amino Transferase 18 U/L (14-36); Bilirubin,Total 0.3 mg/dL (0.2-1.3); Blood Urea Nitrogen 6 mg/dL (7-17); Calcium 9.4 mg/dL (8.4-10.2); Carbon Dioxide 22 mmol/L (22-30); Chloride 105 mmol/L (98-107); Estimated Glomerular Filt Rate > 60; Glucose 86 mg/dL (65-110); Potassium 3.8 mmol/L (3.4-5.0); Sodium 133 mmol/L (137-145); Total Protein 7.0 g/dL (6.3-8.2); Uric Acid 4.5 mg/dL (2.5-7.5)
[2025-11-04 17:51] VITALS: BP 138/93; PULSE 95
[2025-11-12 15:59] LABS: Hematocrit 37.1 % (37.0-47.0); Hemoglobin 12.8 g/dL (12.0-15.0); Immature Granulocyte Percent A 0.5 % (0-0.5); Lymphocytes Absolute Auto 2.08 K/mm3 (0.9-3.2); Mean Corpuscular HGB Conc 34.5 g/dl (32-36); Mean Corpuscular Hemoglobin 31.8 pg (26-34); Mean Corpuscular Volume 92.3 fl (80-100); Nucleated Red Blood Cells Absolute Auto 0.000 K/mm3 (0.0-0.012); Nucleated Red Blood Cells Perc 0.0 % (0.0-0.2); Platelet Count Result 198 k/mm3 (150-375); Red Blood Count 4.02 M/mm3 (4.2-5.4); White Blood Count 9.9 K/mm3 (4.5-10.0)
[2025-11-12 16:16] LABS: Alanine Aminotransferase 16 U/L (6-35); Albumin Level 3.7 g/dL (3.5-5.1); Alkaline Phosphatase 116 U/L (38-126); Anion Gap 5 mmol/L (4-12); Aspartate Amino Transferase 20 U/L (14-36); Bilirubin,Total 0.4 mg/dL (0.2-1.3); Blood Urea Nitrogen 8 mg/dL (7-17); Calcium 9.8 mg/dL (8.4-10.2); Carbon Dioxide 24 mmol/L (22-30); Chloride 104 mmol/L (98-107); Estimated Glomerular Filt Rate > 60; Glucose 81 mg/dL (65-110); Potassium 4.2 mmol/L (3.4-5.0); Sodium 133 mmol/L (137-145); Total Protein 7.3 g/dL (6.3-8.2); Uric Acid 4.4 mg/dL (2.5-7.5)
[2025-11-12 16:18] LABS: Total Protein Urine Random 9 mg/dL; Ur Ttl Prot Creatinine Ratio 0.31 mg/mg (0-0.20)
[2025-11-12 17:00] VITALS: BP 129/82; PULSE 99
--- NOTE | 2025-11-12 17:03 | PC.NURSE ---
1648- RN notified Dr. Burleson of patient's BPP results, NST tracing with moderate variability as well as accelerations. RN notified MD of patient's blood pressure. RN notified MD of [facility] labs. RN also notified MD of the reason patient is getting testing done and her history. MD gave orders to do continuous monitoring until BPP is repeated in 2 hours and to call back with results. MD gave orders for a regular diet.
--- NOTE | ~2025-11-13 | US_ITS ---
EXAM/PROCEDURE: US OB BPP wo non-stress HISTORY: GHTN COMPARISON: None available. TECHNIQUE: Directed exam for biophysical profile score performed. FINDINGS: A single viable intrauterine gestation is present with heart rate of 142 bpm Presentation: Vertex Placenta: Posterior with no gross previa or abruption. EGA by dates 37 weeks 6 days EDC by dates November 12, 2025 Amniotic fluid volume is 12.5 cm x 4 quadrant technique. Biophysical profile score is 4/8. breathin movement: 0 tone: 2 Amniotic fluid pocket: 2 IMPRESSION: Single viable intrauterine gestation with heart rate of 142 bpm. Biophysical profile score is 4/8. If baby is not delivered expectantly, short interval follow-up biophysical profile scoring recommended. Reviewed, dictated and finalized at location A. OR GRINDER MILL OPERATOR IMPRESSION: Single viable intrauterine gestation with heart rate of 142 bpm. Bi ophysical profile score is 4/8. If baby is not delivered expectantly, short int erval follow-up biophysical profile scoring recommended.
--- NOTE | ~2025-11-13 | US_ITS ---
EXAMINATION: US OB BPP wo non-stress DATE: 11/13/2025 12:15 INDICATION: Hypertension. Third trimester. TECHNIQUE: Real-time pelvic ultrasound was performed. COMPARISON: Ultrasound 11/12/2025 FINDINGS: There is a single living fetus in vertex presentation. The placenta is fundal and posterior. heart rate is 153 beats per minute (bpm). The amniotic fluid index is 13.4 cm, which is normal. Biophysical profile performed by the technologist: breathing (30 sec sustained breathing in 30 minutes): 0 out of 2 movement (3 gross body movements in 30 minutes): 2 out of 2 tone (one episode of skzgpud-gdtbugost-tahirro limb movement): 2 out of 2 Amniotic fluid pocket (2 cm): 2 out of 2 Total score: 6 out of 8 IMPRESSION: 1. Single living fetus in vertex presentation. 2. Biophysical profile 6 out of 8. Reviewed, dictated and finalized at location E. ULAR RIPSAW OPERATOR
[2025-11-13 12:15] VITALS: BP 132/93; PULSE 99
== END 2025-11-20 11:39 | disposition other institution (70) ==
LOC: ANHOBOP 10:52
PROVIDERS: Visit Provider Obstetrics & Gynecology
DX: O13.9 Gestational [pregnancy-induced] hypertension without significant proteinuria, unspecified trimester (principal)
CPT/HCPCS: 36415; 59025; 76819; 80053; 81001; 82570; 84156; 84550; 85025; 87086

== ENCOUNTER 2025-11-15 14:37 | Inpatient (IN) | payer OTHER, MEDICAID, SELFPAY ==
[2025-11-15] VITALS (20 sets, daily range): BP systolic 105–145; BP diastolic 62–102; PULSE 84–123; TEMP 36.8; BMI 39.5
--- NOTE | 2025-11-15 14:37 | LDADM ---
This patient, Nidia Mays, was admitted to Labor/Delivery/Recovery 104 on 11/15/25 at 14:37. Plans for labor, pain management and were discussed with patient. Patient/family oriented to hospital policies and general routines including ID bracelet, bed and alarms, visiting hours, pain management, procedures, bathroom and other care routines, personal items, smoking policy, room service/diet and guest tray routines, infant security routines, and visiting hours. Patient/Family are encouraged to report perceived risks to care and to ask questions if they do not understand what they are told or what they should do. See OBIX for further documentation.
[2025-11-15 16:06] LABS: Hematocrit 41.9 % (37.0-47.0); Hemoglobin 14.3 g/dL (12.0-15.0); Immature Granulocyte Percent A 0.4 % (0-0.5); Lymphocytes Absolute Auto 1.98 K/mm3 (0.9-3.2); Mean Corpuscular HGB Conc 34.1 g/dl (32-36); Mean Corpuscular Hemoglobin 31.5 pg (26-34); Mean Corpuscular Volume 92.3 fl (80-100); Nucleated Red Blood Cells Absolute Auto 0.000 K/mm3 (0.0-0.012); Nucleated Red Blood Cells Perc 0.0 % (0.0-0.2); Platelet Count Result 213 k/mm3 (150-375); Red Blood Count 4.54 M/mm3 (4.2-5.4); White Blood Count 10.3 K/mm3 (4.5-10.0)
[2025-11-15] MEDS: DINOPROSTONE 10 MG VAG INSERT VAGINAL (16:15)
[2025-11-15 16:29] LABS: Alanine Aminotransferase 17 U/L (6-35); Albumin Level 4.1 g/dL (3.5-5.1); Alkaline Phosphatase 145 U/L (38-126); Anion Gap 8 mmol/L (4-12); Aspartate Amino Transferase 30 U/L (14-36); Bilirubin,Total 0.4 mg/dL (0.2-1.3); Blood Urea Nitrogen 8 mg/dL (7-17); Calcium 10.3 mg/dL (8.4-10.2); Carbon Dioxide 21 mmol/L (22-30); Chloride 105 mmol/L (98-107); Estimated Glomerular Filt Rate > 60; Glucose 79 mg/dL (65-110); Potassium 4.0 mmol/L (3.4-5.0); Sodium 134 mmol/L (137-145); Total Protein 8.1 g/dL (6.3-8.2); Uric Acid 4.9 mg/dL (2.5-7.5)
[2025-11-15 16:57] LABS: Syphilis IgG/IgM Antibody Non-Reactive (Nonreactive)
[2025-11-15] MEDS: ACETAMINOPHEN 500 MG TABLET 1000 MG PO (17:35)
--- NOTE | 2025-11-15 18:19 | WPDANESEPP ---
Anes - Eval Pre Procedure Procedure: Labor epidural Date/Time: 11/15/25 18:19 Surgeon: Joshua Preop Diagnosis: Abdominal pain with contractions Pre Op Diagnosis: iol Patient Data Age: 24 Gender: F Height: 1.55 m Weight: 95 kg Last Vital Signs Temp 98.3 F 11/15/25 16:52 Pulse 86 11/15/25 18:01 BP 129/68 11/15/25 18:01 O2 Del Method Room Air 11/15/25 16:09 Allergies Allergy/AdvReac Type Severity Reaction Status Date / Time No Known Allergies Allergy Verified 11/15/25 16:19 Home Medications ?Medication ?Instructions ?Recorded ?Confirmed ?Type docosahexaenoic acid 200 mg mg PO DAILY 05/25/25 11/15/25 History capsule ( DHA) gabapentin 400 mg capsule mg PO BID 05/25/25 11/15/25 History mirtazapine 15 mg tablet 15 mg PO HS 05/25/25 11/15/25 History buprenorphine 4 mg-naloxone 1 mg film sublingual Q24H 10/30/25 11/15/25 History sublingual film Laboratory Tests 11/15/25 11/15/25 15:42 17:46 WBC 10.3 H K/mm3 (4.5-10.0) RBC 4.54 M/mm3 (4.2-5.4) Hgb 14.3 g/dL (12.0-15.0) Hct 41.9 % (37.0-47.0) MCV 92.3 fl (80-100) MCH 31.5 pg (26-34) MCHC 34.1 g/dl (32-36) RDW 13.3 % (11.5-14.5) Plt Count 213 k/mm3 (150-375) MPV 9.2 fl (7.4-10.4) Immature Gran % (Auto) 0.4 % (0-0.5) Neut % (Auto) 72.7 % (45.5-73.1) Lymph % (Auto) 19.1 % (18.3-44.2) [place] % (Auto) 6.6 % (2.6-8.5) Eos % (Auto) 1.1 % (0-4.4) Baso % (Auto) 0.1 L % (0.2-1.2) Lymph # (Auto) 1.98 K/mm3 (0.9-3.2) [place] # (Auto) 0.7 H K/mm3 (0.1-0.6) Eos # (Auto) 0.1 K/mm3 (0-0.3) Baso # (Auto) 0.0 K/mm3 (0.0-0.1) Abs Immat Gran (auto) 0.04 H K/mm3 (0.00-0.031) Absolute Neuts (auto) 7.5 H K/mm3 (1.3-6.7) Absolute Nucleated RBC 0.000 K/mm3 (0.0-0.012) Nucleated RBC % 0.0 % (0.0-0.2) Sodium 134 L mmol/L (137-145) Potassium 4.0 mmol/L (3.4-5.0) Chloride 105 mmol/L (98-107) Carbon Dioxide 21 L mmol/L (22-30) Anion Gap 8 mmol/L (4-12) BUN 8 mg/dL (7-17) Creatinine 0.45 L mg/dL (0.7-1.0) Estim Creat Clear Calc Not Reportable Estimated GFR > 60 (59 - ) Glucose 79 mg/dL (65-110) Uric Acid 4.9 mg/dL (2.5-7.5) Calcium 10.3 H mg/dL (8.4-10.2) Total Bilirubin 0.4 mg/dL (0.2-1.3) AST 30 U/L (14-36) ALT 17 U/L (6-35) Alkaline Phosphatase 145 H U/L (38-126) Total Protein 8.1 g/dL (6.3-8.2) Albumin 4.1 g/dL (3.5-5.1) Urine Opiates Screen Pending Urine Methadone Screen Pending Ur Barbiturates Screen Pending Ur Phencyclidine Scrn Pending Ur Amphetamine Screen Pending U Benzodiazepines Scrn Pending Urine Cocaine Screen Pending U Cannabinoids Screen Pending Syphilis IgG/IgM Ab Non-reactive (Nonreactive) Blood Type A Positive Antibody Screen Negative : gestational age HCG: positive Patient hx anesthesia problems: none Family hx anesthesia problems: none Results Review: All pre-operative results and documents have been reviewed as part of the pre-operative evaluation. [facility] Past Medical History Medical History Obesity PTSD (post-traumatic stress disorder) Depression Bipolar 2 disorder Nexplanon removal 02/24/18 Nexplanon removal Nexplanon insertion 06/14/15 Nexplanon insertion Anxiety Surgical History Surgical History [place] teeth removed History of removal of cyst (03/04/19) right lateral thigh Family History Family History Father Hypertension Leukemia Social History Social History Smoking status: Former smoker Tobacco type: e-cigarettes/vaping Second hand tobacco smoke exposure: No Alcohol intake: never Substance use: never Substance use type: does not use, marijuana and opiates Other substance usage details: in the past Lack of Transportation: YES Lack of Food: Never True Current Housing: I Have Housing Concerned About Future Housing: No Difficulty Paying Gas/Electric Bills: No Difficulty Paying for Meds: No Currently Unemployed: No Education: High School Diploma/GED Difficulty w/ Childcare or Family Care: No Living arrangements: with family Additional living arrangements comments: with boyfriend Occupation/Education: unemployed Gender identity (if verbalized by the patient): Female Sexual Orientation (if Verbalized by the Patient): Bisexual Spiritual care concerns: No Exam Day of Procedure 11/15/25 18:19 Patient weight: obese
[2025-11-15 18:27] LABS: Cannabinoid Screen Urine Negative (Negative)
[2025-11-15] MEDS: MIRTAZAPINE 15 MG TABLET PO (20:26)
[2025-11-15] MEDS: GABAPENTIN 400 MG CAPSULE PO (20:26)
[2025-11-16] VITALS (151 sets, daily range): BP systolic 95–159; BP diastolic 44–122; PULSE 37–204; RESP 13–21; TEMP 36.4–37.1; O2SAT 81–100
[2025-11-16] MEDS: ACETAMINOPHEN 500 MG TABLET 1000 MG PO ×2 (02:06→20:19)
[2025-11-16] MEDS: LACTATED RINGERS 500 ML 999 ML IV CONT (05:13)
[2025-11-16] MEDS: BUPRENORPHINE HCL (*CRX) 2 MG SUBLINGUAL TABLET 4 MG SUBLINGUAL (08:30)
[2025-11-16] MEDS: GABAPENTIN 400 MG CAPSULE PO (08:33)
[2025-11-16] MEDS: LACTATED RINGERS 1,000 ML 125 ML IV CONT ×2 (09:36→16:42)
--- NOTE | 2025-11-16 10:06 | PM.IMHP2 ---
H&P: HPI History of Present Illness Date/Time: 11/16/25 10:06 24-year-old primigravid patient at 38 weeks gestation. Diagnosis with gestational hypertension at 34 weeks, which has evolved into preeclampsia to now preeclampsia with severe features with significant headache which is not resolved Tylenol. She has been monitored twice weekly with labs NST BPP, also call managed with MFM due to her history of substance abuse for which she has been sober for the past 3 years. With the increasing headaches and continued elevation pressure discussion with patient and we will admit for induction of labor. Chief Complaint: Hypertension with headache Review of Systems Review of Systems: All systems reviewed & are unremarkable except as noted in HPI and below PMFSH Past Medical History Medical History Obesity PTSD (post-traumatic stress disorder) Depression Bipolar 2 disorder Nexplanon removal 02/24/18 Nexplanon removal Nexplanon insertion 06/14/15 Nexplanon insertion Anxiety Surgical History Surgical History [place] teeth removed History of removal of cyst (03/04/19) right lateral thigh Family History Family History Father Hypertension Leukemia Social History Social History Smoking status: Former smoker Tobacco type: e-cigarettes/vaping Second hand tobacco smoke exposure: No Alcohol intake: never Substance use: never Substance use type: does not use, marijuana and opiates Other substance usage details: in the past Lack of Transportation: YES Lack of Food: Never True Current Housing: I Have Housing Concerned About Future Housing: No Difficulty Paying Gas/Electric Bills: No Difficulty Paying for Meds: No Currently Unemployed: No Education: High School Diploma/GED Difficulty w/ Childcare or Family Care: No Living arrangements: with family Additional living arrangements comments: with boyfriend Occupation/Education: unemployed Gender identity (if verbalized by the patient): Female Sexual Orientation (if Verbalized by the Patient): Bisexual Spiritual care concerns: No Meds Home Medications and Allergies Home Medications ?Medication ?Instructions ?Recorded ?Confirmed ?Type docosahexaenoic acid 200 mg mg PO DAILY 05/25/25 11/15/25 History capsule ( DHA) gabapentin 400 mg capsule mg PO BID 05/25/25 11/15/25 History mirtazapine 15 mg tablet 15 mg PO HS 05/25/25 11/15/25 History buprenorphine 4 mg-naloxone 1 mg film sublingual Q24H 10/30/25 11/15/25 History sublingual film Allergies Allergy/AdvReac Type Severity Reaction Status Date / Time No Known Allergies Allergy Verified 11/15/25 16:19 Vital Signs Vital Signs - 24 hr 11/15/25 15:01 11/15/25 15:16 11/15/25 15:31 Temperature Pulse Rate 103 H 110 H 96 Blood Pressure 137/95 H 137/102 H 129/81 Oxygen Delivery 11/15/25 15:46 11/15/25 16:02 11/15/25 16:09 Temperature Pulse Rate 101 H 107 H Blood Pressure 131/96 H 135/84 Oxygen Delivery Room Air 11/15/25 16:31 11/15/25 16:52 11/15/25 17:01 Temperature 98.3 F Pulse Rate 89 88 Blood Pressure 128/90 126/84 Oxygen Delivery 11/15/25 17:31 11/15/25 18:01 11/15/25 18:31 Temperature Pulse Rate 95 86 87 Blood Pressure 126/76 129/68 119/73 Oxygen Delivery 11/15/25 19:01 11/15/25 19:31 11/15/25 20:01 Temperature Pulse Rate 84 123 H 97 Blood Pressure 138/86 145/100 H 140/92 H Oxygen Delivery 11/15/25 20:31 11/15/25 21:01 11/15/25 21:31 Temperature Pulse Rate 92 98 105 H Blood Pressure 125/79 131/86 137/91 H Oxygen Delivery 11/15/25 22:01 11/15/25 23:01 11/15/25 23:31 Temperature Pulse Rate 103 H 115 H 95 Blood Pressure 124/75 131/80 105/62 Oxygen Delivery 11/16/25 00:01 11/16/25 00:31 11/16/25 01:01 Temperature Pulse Rate 105 H 91 111 H Blood Pressure 110/70 112/76 112/77 Oxygen Delivery 11/16/25 01:31 11/16/25 01:54 11/16/25 02:01 Temperature 97.5 F L Pulse Rate 100 86 Blood Pressure 124/76 137/99 H Oxygen Delivery 11/16/25 02:32 11/16/25 03:01 11/16/25 04:31 Temperature Pulse Rate 86 87 121 H Blood Pressure 95/44 L 103/50 L 120/84 Oxygen Delivery 11/16/25 05:16 11/16/25 05:31 11/16/25 06:01 Temperature Pulse Rate 93 89 85 Blood Pressure 120/79 121/83 134/98 H Oxygen Delivery 11/16/25 07:00 11/16/25 07:01 11/16/25 07:31 Temperature 98.1 F Pulse Rate 90 87 Blood Pressure 128/78 121/87 Oxygen Delivery 11/16/25 08:01 11/16/25 08:31 11/16/25 09:02 Temperature Pulse Rate 84 79 91 Blood Pressure 131/89 136/83 119/90 Oxygen Delivery 11/16/25 09:31 11/16/25 10:01 Temperature Pulse Rate 93 99 Blood Pressure 129/88 133/87 Oxygen Delivery Exam Const: General: cooperative and healthy appearing Resp: Effort & Inspection: normal respiratory effort Auscultation: clear to auscultation bilaterally Cardio: Rate: regular rate Rhythm: regular rhythm GI: Inspection: normal to inspection Auscultation: normal bowel sounds : Speculum Exam - Cervix: Other cervical findings present ( cervix fingertip dilated thick and firm) Bimanual exam- vagina & uterus: enlarged ( 39cm) Results Labs Labs: Short CBC 11/15/25 Range/Units 15:42 WBC 10.3 H (4.5-10.0) K/mm3 Hgb 14.3 (12.0-15.0) g/dL Hct 41.9 (37.0-47.0) % Plt Count 213 (150-375) k/mm3 BMP 11/15/25 15:42 Sodium 134 L Potassium 4.0 Chloride 105 Carbon Dioxide 21 L BUN 8 Creatinine 0.45 L Glucose 79 Calcium 10.3 H Liver Function 11/15/25 Range/Units 15:42 Total Bilirubin 0.4 (0.2-1.3) mg/dL AST 30 (14-36) U/L ALT 17 (6-35) U/L Alkaline Phosphatase 145 H (38-126) U/L Albumin 4.1 (3.5-5.1) g/dL Assessment and Plan Assessment and plan (1) 38 weeks gestation of : Code(s): Z3A.38 - 38 weeks gestation of Status: Acute (2) Pre-eclampsia in third trimester: Code(s): O14.93 - Unspecified pre-eclampsia, third trimester Status: Acute (3) History of substance abuse: Code(s): F19.11 - Other psychoactive substance abuse, in remission Status: Acute Plan admit for induction of labor. Will initiate with Cervidil and see how she responds to this. Blood pressures will also be monitored and treated accordingly. Continuous monitoring, intervention as needed.
--- NOTE | 2025-11-16 10:10 | WPDHPUPDATE1 ---
History and Physical Update Update Date/Time: 11/16/25 10:10 History and Physical has been reviewed, including an updated exam of the patient. There are NO changes in the patient's condition. Risks, benefits, and alternatives have been discussed and questions answered. Patient agrees to proceed with procedure.
[2025-11-16] MEDS: ONDANSETRON INJ 4 MG/2 ML VIAL IV PUSH (18:08)
[2025-11-16] MEDS: FAMOTIDINE 20 MG/2 ML VIAL IV PUSH (20:21)
[2025-11-16] MEDS: LACTATED RINGERS 1,000 ML 999 ML IV CONT (20:30)
[2025-11-16] MEDS: SODIUM CHLORIDE 0.9% IV 50 ML 100 ML (20:30)
--- NOTE | 2025-11-16 20:31 | WPDHPUPDATE1 ---
History and Physical Update Update Date/Time: 11/16/25 20:31 Patient has had minimal cervical change throughout Cervidil and Cytotec. Reasonable uterine activity and has not gone past 1 to1.5cm. Also in the last hour fetus has become tachycardic at 160-170. Still with good variability but is be having some mild decelerations as well therefore we will be proceeding with primary delivery. Patient states good understanding of reasoning and we will proceed. History and Physical has been reviewed, including an updated exam of the patient. There are NO changes in the patient's condition. Risks, benefits, and alternatives have been discussed and questions answered. Patient agrees to proceed with procedure.
--- NOTE | 2025-11-16 21:15 | P.PCNOB_ITS ---
OB - Delivery Note Procedure Delivery date: 11/16/25 Pre-op diagnosis: Arrest of Dilation, Preeclampsia w severe features and Other ( tachycardia) Post-op Diagnosis: Same Procedure Performed: Primary Primary branch: low cervical, transverse Surgeon: Darci Lewis MD Anesthesia type: Epidural Description of Procedure/Findings: Patient prepped and draped in the usual manner for this procedure. Pfannenstiel incision was made which was carried down to the fascia and extended bilaterally the length of the skin incision. Superiorly and inferiorly the fascia was dissected away from the rectus muscles without difficulty. Peritoneum was readily entered and bladder flap was developed. Uterus was scored with clear fluid noted. This was extended the length of lower segment. Vertex was delivered without difficulty and the rest of baby followed again without difficulty. Cord clamped cut baby was passed off the operative field and the uterus was removed manually. Uterus was exteriorized cleared of membrane and clots and closed using 0 Monocryl in a running interlocking manner with good approximation and hemostasis noted. Uterus was returned to the abdomen, gutters were cleared with serosanguineous fluid and clots. Uterine incision again inspected with hemostasis noted. Fascia was approximated using 0 Vicryl from left angle to midline and the right angle to midline in running manner with good approximation noted. Subcutaneous tissue was approximated using 0 plain suture and demetrio were then used to approximate the skin edges. Patient was sent to recovery room in stable condition. Specimen: Yes Estimated Blood Loss: 830 Drains: Yes (Mckeon) Packing: No Pathology: Yes (Placenta) Complications: No immediate complications Condition: Stable Disposition: PACU [place] Baby Gestational Age by Date: 38 gender: Male presentation: vertex Placenta delivery description: Manual Removal Cord Vessel Description: 3 Vessels
[2025-11-16] MEDS: OXYTOCIN 30 UNITS/NS 500 ML 30 UNITS/500 ML BAG 125 UNITS IV CONT (21:44)
--- NOTE | 2025-11-16 22:37 | S_PTH ---
PATIENT: Nidia Mays LOC: AN[facility]2 U#:[id number] AGE/SX: 24/F ROOM: 292 RE11/15/[address]: Darci Lewis MD : 2000 BED: 00 DIS: 11/19/2025 SPEC #: [id number] RECD: 11/17/25 07:19 STATUS: MERYL CAZARES #: [id number] JUDY: 11/16/25 22:[address]: Darci Lewis DEPT: [facility] Surgical RECD BY: Yesi Corcoran ENTERED: 11/17/25 07:19 SP TYPE: Surgical OTHR DR: UPHOLSTERER APPRENTICE PHYSICIAN Tissues: A - Placenta Procedures: Hematoxylin and Eosin Stain Gross and Microscopic Level 5
[2025-11-17] VITALS (10 sets, daily range): BP systolic 99–137; BP diastolic 55–92; PULSE 88–118; RESP 15–20; TEMP 36.6–37.1; O2SAT 95–100
[2025-11-17] MEDS: ACETAMINOPHEN 500 MG TABLET 1000 MG PO ×4 (01:16→20:00)
[2025-11-17] MEDS: GABAPENTIN 400 MG CAPSULE PO ×3 (01:17→21:00)
[2025-11-17] MEDS: KETOROLAC 15 MG/ML VIAL (*BKC) IV PUSH ×3 (01:17→13:46)
[2025-11-17] MEDS: MIRTAZAPINE 15 MG TABLET PO ×2 (01:17→21:00)
[2025-11-17] MEDS: LABETALOL HCL 100 MG TABLET 200 MG PO (01:25)
--- NOTE | 2025-11-17 01:56 | OBPPTRN ---
Patient transferred to post room #292 via bed. Support person present. Oriented to unit, room, information board, rooming in, admission packet and security measures. Patient verbalizes understanding. remains in level 2 nursery at this time, patient instructed to call for baby updates whenever she would like
[2025-11-17] MEDS: KCL 20 MEQ/D5/0.45% SOD CHL 1,000 ML 125 ML IV CONT (02:33)
[2025-11-17 05:21] LABS: Hematocrit 27.6 % (37.0-47.0); Hemoglobin 9.2 g/dL (12.0-15.0); Immature Granulocyte Percent A 0.4 % (0-0.5); Lymphocytes Absolute Auto 1.97 K/mm3 (0.9-3.2); Mean Corpuscular HGB Conc 33.3 g/dl (32-36); Mean Corpuscular Hemoglobin 31.5 pg (26-34); Mean Corpuscular Volume 94.5 fl (80-100); Nucleated Red Blood Cells Absolute Auto 0.000 K/mm3 (0.0-0.012); Nucleated Red Blood Cells Perc 0.0 % (0.0-0.2); Platelet Count Result 153 k/mm3 (150-375); Red Blood Count 2.92 M/mm3 (4.2-5.4); White Blood Count 9.7 K/mm3 (4.5-10.0)
[2025-11-17] MEDS: MULTIVIT/MIN/PREN/FOL AC/IRON TABLET 1 TAB PO (09:35)
[2025-11-17] MEDS: DOCUSATE SODIUM 100 MG CAPSULE PO ×2 (09:35→17:01)
[2025-11-17] MEDS: BUPRENORPHINE HCL (*CRX) 2 MG SUBLINGUAL TABLET 4 MG SUBLINGUAL (09:35)
[2025-11-17] MEDS: SIMETHICONE 80 MG TAB.CHEW PO ×3 (09:35→17:01)
--- NOTE | 2025-11-17 09:49 | PC.NURSE ---
notified that patient states, My head feels fuzzy, I'm really tired and my vision is blurred. Orders received to repeat H&H at 1100 and will be by around lunchtime to assess pt.
[2025-11-17] MEDS: DEXTROSE 5%/0.45% SOD CHL 1,000 ML 125 ML IV CONT (10:42)
--- NOTE | 2025-11-17 10:44 | PC.NURSE ---
Pt states she ate some pizza and a donut and she is starting to feel a little better.
[2025-11-17 11:19] LABS: Hematocrit 29.2 % (37.0-47.0); Hemoglobin 9.7 g/dL (12.0-15.0)
--- NOTE | 2025-11-17 14:50 | PM.OBPNVD ---
OB - PN: Subj Subjective Date/time seen: 11/17/25 14:50 S: Pain moderately well controlled without narcotics which to this point she is trying to avoid. Has not gotten out of bed yet Mckeon catheter still in place. Feeling very poorly this morning, did have lunch and felt better. O: VSS afebrile Abdomen: Positive bowel sounds soft Incision: Bandage in place dry Labs: Noted A: 1. Postoperative day 1 status post primary delivery...slow recovery to this point though overall doing well. Have encouraged patient to increase her diet and activity as tolerated. 2. Anemia... blood count with hemoglobin of 9.2 this morning, stabilized and 9.7 this afternoon. We briefly did speak of potential for transfusion but will see how she does with increasing activity. If she is lightheaded dizzy short of breath or any other significant symptomatology will likely transfuse 2units of pack cells. 3. History of substance abuse with 3 years sober... doing well without narcotics thus far though she is having fair amount of discomfort. We will continue to try to help her with this discomfort as much as possible without using opioids. This was discussed at length patient and also encouraged to begin ambulation in which also ultimately will likely help with her discomfort. P: See above. Otherwise routine postoperative/ care. OB - PN: Obj Data Labs 11/17/25 11:10 11/15/25 15:42 Labs: Laboratory Results - last 24 hr 11/17/25 11/17/25 04:49 11:10 WBC 9.7 RBC 2.92 L Hgb 9.2 L D 9.7 L Hct 27.6 L 29.2 L MCV 94.5 MCH 31.5 MCHC 33.3 RDW 13.5 Plt Count 153 MPV 9.1 Immature Gran % (Auto) 0.4 Neut % (Auto) 69.5 Lymph % (Auto) 20.4 [place] % (Auto) 9.2 H Eos % (Auto) 0.4 Baso % (Auto) 0.1 L Lymph # (Auto) 1.97 [place] # (Auto) 0.9 H Eos # (Auto) 0.0 Baso # (Auto) 0.0 Abs Immat Gran (auto) 0.04 H Absolute Neuts (auto) 6.7 Absolute Nucleated RBC 0.000 Nucleated RBC % 0.0 OB - PN A/P Time Spent With Patient Time: Total time spent is greater than 50% in coordination of care (as documented) at patient's floor/unit and/or counseling patient:
--- NOTE | 2025-11-17 15:20 | PC.NURSE ---
[id number] Consulted with patient to assess needs related to . Discussed with mother her successes, concerns and any questions she has. Per mother she would like to see if her would latch, he had received bottles while in Level II nursery. We reviewed working with the , supporting breast, protecting her nipples with an optimal deep latch, good positioning, and good hand washing. Encouraged understanding the benefits of skin to skin, responding to feeding cues, frequencies of feeding 8-12 times in 24 hours (approximately 2-3 hours), duration of feedings, milk production, intake/output feeding sheet and signs of adequate intake encouraging swallowing at the breast. Reviewed positioning and alignment, supporting breast, off-centered (asymmetrical latch) and leading with the chin with big, open, wide gape. Infant attempted to latch to the [left] breast in [football and cross cradle] position tried with and without using a nipple shield. A nipple shield provided to mother due to mother's nipples being flat and infant unable to latch. Reviewed good handwashing, cleaning the nipple shield and the appropriate way to apply and use as a tool. Discussed with mom the nipple shield precautions, possible complications associated with the risks and benefits. Reviewed practicing with a nipple shield, then without and how to protect the milk supply and production. Mom and baby guide referred to as a resource for outpatient services, community resources and when to call a provider. Mom voiced understanding of the importance of hand expression, nipple stimulation and initiating a pumping schedule if infant continues to nurse with the shield. Education was given to the mother of how to visualize the suckling (with good rocking jaw motion) swallows (dropping of the lower jaw) and how to listen for drinking at the breast (the ka sound). The was [not able] to maintain latch. Mother has requested a formula bottle at this time, she does have her own breast ump but is unsure if she wants to pump right now. Resources used to facilitate learning were used from the [visual handouts/ tool/mom and baby guide]. Also reviewed mother's home medication list, per Jeanette's Medications and Mothers' Milk book, her medications range from L2-L3, which say Probably Compatible, advised mother to watch for infant to be sleepy, poor feeder and poor weight gain. Mother voiced understanding of the education shared, to call for assistance if the infant does not latch or if there is discomfort with . Reported to the Primary RN.
--- NOTE | 2025-11-17 17:34 | WPDANLDPN2 ---
Anes-Prog Note L&D Date/Time: 11/17/25 17:34 Comfortable throughout: labor and section Neuraxial method: epidural Epidural/Spinal procedure site: clean & non-tender Neuro status: Neuro function grossly intact. Cardiovascular status: normal Respiratory status: normal Airway patency: baseline Mental status: baseline Post-Op hydration status: normal Vital Signs: Last Vital Signs Temp 97.9 F 11/17/25 15:45 Pulse 100 11/17/25 15:45 Resp 16 11/17/25 15:45 BP 111/71 11/17/25 15:45 Pulse Ox 99 11/17/25 15:45 O2 Del Method Room Air 11/17/25 15:45 Pain score (VAS): 0/10 I/O: Intake & Output 11/17/25 11/17/25 11/17/25 07:59 15:59 23:59 Intake Total 440 Output Total 350 400 300 Balance -350 -400 140 Post-procedural complaints: none Patient feedback: Patient satisfied with anesthetic care.
--- NOTE | 2025-11-17 17:35 | WPDANLDNPN2 ---
Anes-Prog Note L&D-Neuraxial Date/Time: 11/17/25 17:35 Neuraxial medications: epidural PF morphine Opiod-related complaints: none Patient feedback: Patient satisfied with post-operative pain management.
[2025-11-17] MEDS: IBUPROFEN 600 MG TABLET PO (20:00)
[2025-11-18] VITALS (8 sets, daily range): BP systolic 116–131; BP diastolic 77–89; PULSE 90–115; RESP 16–17; TEMP 36.7–37.1; O2SAT 98–100
[2025-11-18] MEDS: IBUPROFEN 600 MG TABLET PO ×3 (02:00→15:33)
[2025-11-18] MEDS: ACETAMINOPHEN 500 MG TABLET 1000 MG PO ×3 (02:00→15:33)
[2025-11-18 05:17] LABS: Hematocrit 27.2 % (37.0-47.0); Hemoglobin 9.0 g/dL (12.0-15.0)
[2025-11-18] MEDS: GABAPENTIN 400 MG CAPSULE PO ×2 (08:53→21:18)
[2025-11-18] MEDS: SIMETHICONE 80 MG TAB.CHEW PO ×3 (08:53→17:58)
[2025-11-18] MEDS: DOCUSATE SODIUM 100 MG CAPSULE PO ×2 (08:54→17:58)
[2025-11-18] MEDS: BUPRENORPHINE HCL (*CRX) 2 MG SUBLINGUAL TABLET 4 MG SUBLINGUAL (08:54)
--- NOTE | 2025-11-18 10:10 | PC.NURSE ---
Introductions were made, then consulted with patient to assess needs related to . Discussed with mother her?plans to feed?her and the?experience so far. Per mother she had decided to only bottle feed last night and did not put to breast, she would like to see if her will latch and if he does not then she has decided to pump. Mother to call for CLC with the next feeding. Resources provided for inpatient and outpatient services with the feeding sheet, mom/baby guide and name written on the communication board. Mother voiced understanding of information and will call if there is a request for assistance. Reported to the Primary RN.
--- NOTE | 2025-11-18 11:53 | PM.OBPNVD ---
OB - PN: Subj Subjective Date/time seen: 11/18/25 11:53 S: Overall feeling better today. Still with no narcotics and states her pain is tolerable with the ibuprofen and Tylenol. Has been up moving and room, catheters out good urination. Significantly less edema today subjectively. O: VSS afebrile Incision clean dry and intact with demetrio Labs: Noted A: Overall doing well. Patient is up and moving without difficulty and therefore will not transfuse. Will continue to monitor blood pressure but she has not taken any medication since delivery and pressures have been fine. P: Demetrio will be removed tomorrow. Will also change tomorrow to no care bed as baby will need to stay for antibiotics. OB - PN: Obj Data Labs 11/18/25 05:05 11/15/25 15:42 Labs: Laboratory Results - last 24 hr 11/18/25 05:05 Hgb 9.0 L Hct 27.2 L OB - PN A/P Time Spent With Patient Time: Total time spent is greater than 50% in coordination of care (as documented) at patient's floor/unit and/or counseling patient:
--- NOTE | 2025-11-18 11:55 | P.DS_ITS ---
DS: Admitting Diagnosis Discharge Date 11/19/2025 Admitting Diagnosis DS: Discharge Diagnosis Discharge Diagnosis (1) , delivered: Code(s): O80 - Encounter for full-term uncomplicated delivery Status: Acute OB - DS: Summary OB Procedures : PIH Mgmt OB Procedures Intrapartum: low cervical, transverse OB Procedures: : None Peripartum Data Procedures: Procedures Operation Date: 11/16/25 20:30 Actual Procedure Side Surgeon p Section Not Applicable Darci Lewis MD Time Spent with Patient Time attestation: Total time spent providing and/or coordinating discharge services: DS: Data Data Completed and Pending Completed studies during hospitalization: Pending at discharge 11/16/25 22:37 Surgical [PTH] Routine Labs on day of discharge: Labs from last 24 hours 11/18/25 05:05 Hgb 9.0 L Hct 27.2 L Discharge Plan Discharge Discharging Clinician: Darci Lewis Patient Disposition: Home Activity: may shower, no driving, follow weight bearing status and pelvic rest Diet: as tolerated Wound Care Instructions: incision open to air Discharge Instructions: [place] removed and Steri-Strips placed prior to discharge on 11/19 Patient Instructions: Antibiotic Form Patient Language: Ghanaian Stand Alone Forms: General Discharge Information Follow-up/Referrals: Darci Lewis MD [Physician, ESCROW SECRETARY] - 3 Weeks Discharge Medications: New ibuprofen 600 mg Tablet 600 mg PO Q6HR Qty: 30 0RF Continued DHA 200 mg capsule PO DAILY mirtazapine 15 mg tablet 15 mg PO HS gabapentin 400 mg capsule PO BID buprenorphine-naloxone 4-1 mg film sublingual Q24H Date of admission: 11/15/25 14:37 Primary Care Provider: PHYSICIAN,INSTRUCTOR TRAFFIC SAFETY Admitting Provider: Darci Lewis Attending physician on admission: Darci Lewis Condition: Stable
--- NOTE | 2025-11-18 13:16 | PCCCNOTE ---
Care Coordination. Patient referred to CC for history of opiate use and mental health. Pt. UDS negative here. Pt. reports living home with deonna and significant other. Pt. reports has been sober years. She is currently being prescribed suboxone and seeing a counselor once a week at [place]. She reports doing well and denies any resources. She is setup with WIC. Provided basket of baby care items to patient. She reports having good family support returning home. This is pt.'s first child.
[2025-11-18] MEDS: LIDOCAINE 5% PATCH 1 PATCH TRANSDERM (15:33)
[2025-11-19 03:50] VITALS: BP 133/79; PULSE 99; RESP 16; TEMP 37.4; O2SAT 99
[2025-11-19] MEDS: ACETAMINOPHEN 500 MG TABLET 1000 MG PO ×3 (05:42→17:48)
[2025-11-19] MEDS: IBUPROFEN 600 MG TABLET PO ×3 (05:42→17:48)
[2025-11-19 07:30] VITALS: BP 123/86; PULSE 87; RESP 14; TEMP 36.7; O2SAT 100
[2025-11-19] MEDS: SIMETHICONE 80 MG TAB.CHEW PO ×2 (10:01→17:48)
[2025-11-19] MEDS: oxyCODONE HCL (*CRX) 5 MG TAB IR PO (10:02)
[2025-11-19] MEDS: MULTIVIT/MIN/PREN/FOL AC/IRON TABLET 1 TAB PO (10:02)
[2025-11-19] MEDS: GABAPENTIN 400 MG CAPSULE PO (10:02)
[2025-11-19] MEDS: DOCUSATE SODIUM 100 MG CAPSULE PO ×2 (10:02→17:48)
[2025-11-19] MEDS: BUPRENORPHINE HCL (*CRX) 2 MG SUBLINGUAL TABLET 4 MG SUBLINGUAL (10:02)
[2025-11-19 11:25] VITALS: BP 141/95; PULSE 88; RESP 12; TEMP 36.8; O2SAT 99
[2025-11-19 12:35] VITALS: BP 123/77
--- NOTE | 2025-11-19 12:52 | PC.NURSE ---
0830 Mother had let her Primary RN know that she would like to be sized for her breast pump, mother stated, Sorry I did not call you for help yesterday, I was just really tired and not ready to pump, CLC let mother know that her milk supply may be delayed but to pump consistently. Instructions given on cleaning, care, usage, that there should be no pain, pumping schedule for milk production, collection, and storage of human milk. Patient was assessed for correct placement, flange size, to pump for comfort and nipple stretching/stimulation for adequate milk production every 3 hours (8 times in 24 hours) 1-2 times at night. Parents are encouraged to record the pumping schedule on the feeding sheet.?Mother voiced understanding of the education shared along with mom/baby guide and the pump measurement, flange fit handout for additional resource information. Mother declined needing a [facility] referral. Reported to the Primary RN. [phone] Mother is going to be discharged to a Care Bed. Mother is feeding appropriately for growth of infant and understands stimulating infant to eat if needed. Infant has had appropriate feedings in the last 24 hours meets the outcomes for weight, output, blood sugar and jaundice at this time. Reinforced understanding of milk production, transition of milk, signs of adequate intake, transition of stool, prevention/relief of engorgement, plugged ducts, mastitis, responsive feeding watching for feeding cues, community resources, and when to call a provider using the resource of the feeding sheet along with the mom and baby guide. Mother voiced understanding of the information shared, is confident to continue effectively feed her infant at home, when to call for assistance, denies any additional assistance or education at this time. Reported to the Primary RN.
--- NOTE | 2025-11-19 17:55 | PC.NURSE ---
Pt discharged to no care bed status.
[2025-11-20 10:06] VITALS: BP 130/85; PULSE 84; RESP 18; TEMP 36.6; O2SAT 100
== END 2025-11-19 17:55 | disposition home or self-care (01) | DRG 787 ==
LOC: ANHLDR 14:40 → ANHOB2 11-17 01:33
PROVIDERS: Admitting Provider Obstetrics & Gynecology; Visit Provider Obstetrics & Gynecology
PROC: 10D00Z1 Extraction of Products of Conception, Low, Open Approach (ICD-10-PCS; CPT 59514; principal; 2025-11-16 20:30)
DX: O14.14 Severe pre-eclampsia complicating childbirth (principal); F31.81 Bipolar II disorder; Z37.0 Single live birth; Z3A.38 38 weeks gestation of pregnancy; O99.344 Other mental disorders complicating childbirth; D64.9 Anemia, unspecified; O90.81 Anemia of the puerperium; O76 Abnormality in fetal heart rate and rhythm complicating labor and delivery; O62.1 Secondary uterine inertia; O99.892 Other specified diseases and conditions complicating childbirth; F11.11 Opioid abuse, in remission; F19.11 Other psychoactive substance abuse, in remission
CPT/HCPCS: 36415; 80053; 80307; 84550; 85014; 85018; 85025; 86593; 86850; 86900; 86901; 88307; J0690; A9270; J1885; J2004; J2274; J2405; J2590; J2704; J2795; J3480; J7120

== ENCOUNTER 2025-11-26 10:02 | Emergency (ER) | payer OTHER, MEDICAID, SELFPAY ==
--- NOTE | ~2025-11-26 | US_ITS ---
RIGHT LOWER EXTREMITY VENOUS DUPLEX Clinical History: post , pain, swelling COMPARISON: None TECHNIQUE: Grayscale, color, duplex/spectral Doppler sonography right leg FINDINGS: Right leg common femoral, femoral, popliteal, and calf veins compressible and color Doppler patent. Normal augmentation with distal compression. No internal echoes. Lower extremity interstitial edema. IMPRESSION: 1. No right leg DVT. Reviewed, dictated and finalized at location R. [facility]INDER IMPRESSION: 1. No right leg DVT.
--- OUTSIDE RECORDS SUMMARY | 2025-11-26 10:05 | XMS_ITS | Clinical Summary ---
Author Organization [facility] [address] Address [address] [place] [address] Care Team Providers Care Track Template Maker Name Role Phone Satnam Matute NP Primary Care Provider [phone] Allergies No known active allergies Medications buprenorphine-nalox [...] Department Care Team Description 10/09/2025 9:26 AM KEYSEATER OPERATOR - 10/09/2025 11:25 AM KEYSEATER OPERATOR Hospital Encounter [facility] [address] [place] [address] Neyda Pham MD Discharge Disposition: Discharge to home or self care 10/09/2025 9:13 AM KEYSEATER OPERATOR - 10/09/2025 11:10 AM KEYSEATER OPERATOR Emergency [facility] Emergency Department 1 [place] [address] Discharge Disposition: Still a patient from Last [...] often do you attend chur ch or episcopalian services? Never 10/09/2025 Do you belong to any clubs o r organizations such as advent groups, unions, fraternal or athletic groups, or [...] and heating? Not hard at all 10/09/2025 [facility] - Occupational [...] time in the past 12 m [facility], were you homeless or living in a skilled nursing (including now)? No 10/09/2025 [facility] Utilities Answer Date Recorded In the past [...] on file Legal Sex Female 8:17 AM KEYSEATER OPERATOR Gender Identity Not on file Sexual Orientation Not on file Obstetrics History Para Term AB IAB SAB Ectopic Multiple Livin g Live Births 1 Date Outcome GA Total Labor Labor/2nd/3rd Weight Sex Type Anes PTL Iman A1 A5 Name Clin Current Summary Episode Dates Number of Fetuses Estimated Date of Delivery 08/02/2025 - Present (11/26/2025) 11/27/2025 (based on Alternate DENIS Entry) Dating Summary Based On DENIS GA Diff Alternate DENIS Entry 11/27/2025 Working Comment:Date entered prior t o episode creation Vitals Pregravid Weight Height TWG (As of 11/26/2025) Pregrav id BMI 154.9 cm (5' 1) Date GA Fund Present FHR Mvmt BP Weight Edema Alb Glu Ket Dil/ Eff/Sta 5 23w2d Inpatient data not displayed here. See encounter summary. 5 33w0d Inpatient data not displayed here. See encounter summary. Last Filed Vital Signs Vital Sign Reading Time Taken Comments Blood Pressure 124/82 10/09/2025 11:03 AM KEYSEATER OPERATOR Pulse 111 10/09/2025 11:03 AM KEYSEATER OPERATOR Temperature 36.1 C (96.9 F) 10/09/2025 9:36 AM KEYSEATER OPERATOR Respiratory Rate 16 10/09/2025 9:16 AM KEYSEATER OPERATOR Oxygen Saturation 100% 10/09/2025 9:16 AM KEYSEATER OPERATOR Inhaled Oxygen Concentration - - Weight 77.1 kg (170 lb) 08/02/2025 10:29 AM CDT Height 154.9 cm (5' 1) 08/02/2025 10:29 AM CDT Body Mass Index 32.12 08/02/2025 10:29 AM CDT Plan of Treatment Upcoming Encounters Date Type Department Care Team (Late st Contact Info) Description 11/27/2025 Hospital Encounter [facility] 1 [facility] [address] [place] [address] Neyda Pham MD [address] [place] [address] Health Maintenance Due Date Last Done Comments [...] PROTEIN MARKER (ROM) Routine 10/09/2025 10:02 AM KEYSEATER OPERATOR from Last 3 Months Results * ROM Plus (IGFBP-1/AFP) (10/09/2025 10:02 AM KEYSEATER OPERATOR) IFG Binding Protein-1 / AFP Negative Swab 10/09/2025 10:0 2 AM KEYSEATER OPERATOR 10/09/2025 10:12 AM KEYSEATER OPERATOR us Neyda Pham MD LAB BODY FLUIDS AND S TOOLS ORDERABLES Final Result [facility]) 1 [facility] Department of Laboratories [place] [id number] from Last 3 Months Insurance [facility] PLUS [facility] PLUS Care Teams Track Template Maker Relationship Specialty Start Date End Date Satnam Matute NP [address] [address] PCP - General Nurse Practitioner 03/21/22
--- OUTSIDE RECORDS SUMMARY | 2025-11-26 10:05 | XMS_ITS | Clinical Summary ---
Author Organization [facility] Address [facility] [place] [address] Care Team Providers Care Claims Clerk Name Role Phone Patricia Brooks PA-C Primary Care Provider [phone] Allergies No known active allergies Medications omeprazole [...] patient's age to complete this topic Insurance [facility] Care Teams Claims Clerk Relationship Specialty Start Date End Date Patricia Brooks PA-C [address] [place] [phone] PCP - General PHYSICIAN INCOME AUDITOR 08/16/21
--- OUTSIDE RECORDS SUMMARY | 2025-11-26 12:14 | XMS_ITS | Data Portability ---
Author Organization [place] [facility] [place] Address [address] [facility] [address] [place] [address] Assessment Encounter Date Assessment Date Assessment LastModified [...] used during this encounter to provide a zwor-xy-xgwm interactive encounter. Components of this encounter are a culmination of visual and patient-assisted findings. [email or web address] Not available 03/26/2024 14:07:03 03/27/2024 03/27/2024 Pt [...] By Organization Details Last Modified Time 03/27/2024 [id number] I have discussed the risks and benefits [...] Pt also agrees that me, and the [facility] Team are my treating physicians and that [...] ICD10 Code Diagnosis IMO Codes Diagnosis Note [id number] [facility] [address] [place] [address],[address] [place] [address] 03/26/2024 13:56:55 03/26/2024 14:07:45 Chronic pain [id number] G89.29 [id number] Denisa [facility]terjee [facility] [address] [place] [address],[address] [place] [address] 03/27/2024 11:10:45 03/27/2024 11:30:06 Chronic pain [id number] G89.29 Health Concerns Section Related Observation LastModified by Organization Detai ls LastModified Time None Recorded Concern Status LastModified by Organization Details LastModified Time None Recorded Advance Directives Directive None Recorded Payers Insurance Date Sequence Insurance Name Policy Number Policy Mcknight Covered Member ID Mcknight Member ID Guarantor Name 04/10/2024 1 [facility] [id number] [facility] [id number] [facility] Notes Date Note Type Note Provider Name [...] XIMENA Negron [address], [address], [place], [address], [facility] 03/26/2024 14:07:40 4 text/html ROS [...] Chatterjee MD [address], [address], [place], [address], [facility] 03/27/2024 11:18:57 OBGyn Episode No OBEpisode recorded.
--- OUTSIDE RECORDS SUMMARY | 2025-11-26 12:14 | XMS_ITS | Patient Health Record ---
Author Organization [facility] Address [address] [place] [address] Phone [phone] Care Team Providers Care Referral Clerk Name Role Phone Niru Hdez MD Primary Care Provider Margareth Charles APRN Unavailable Bahman Mcrae Unavailable [phone] Deja Costello APRN Unavailable Allergies No Known [...] Notes Goals Interventions 12/29/19 25 PRAPARE (LOINC: 71386-7) Total Score: 7 Date Completed/Upda veronica: 06/25/20 24 What is your current housing situation? 48061-6 I have housing (BL77743-3) Are you worried about losing your housing? 77077-5 No (LA32-8) What is the highest level of school that you have finished? 56316-4 Less than a high school degree (EG74149-9) What is your current work situation? 09471-2 Unemployed and seeking work (AA42314-3) In the past year, have you o r any family members you live with been unable to get any of the following when it was really needed? Check all that apply 45122-8 I do not have problems meeting my needs Has lack of transportation k ept you from medical appointments, meetings, work or from getting things needed for daily living? 33165-7 Yes, it has kept me from non-medical meetings, appointments, work, or getting things needed for daily living (OY71684-3) Yes, it has kept me from medical appointments or from getting my medications (HE14313-2) How often do you see or talk to people that you care about and feel close to? (For example: talking to friends on the phone, visiting friends or family, going to jew or club meetings) 92385-9 More than 5 times a week (PX56621-9) How stressed are you? Stress is when someone feels tense, nervous, anxious, or can\t sleep at night because their mind is troubled 38403-1 Somewhat (KI83623-7) In the past year have you sp ent more than 2 nights in a row in a assisted, correction, residential center, or juvenile correctional facility? 47033-2 No (LA32-8) Do you feel physically and emotionally safe where you currently live? 88218-9 Yes (LA33-6) In the past year, have you b een afraid of your partner or ex-partner? 62962-9 No (LA32-8) Are you a refugee? No [...] W/U Status Risk Notes Problem Tobacco user (659215477) Nicotine dependence, unspecified, uncomplicated (F17.200) Added On:2024 Active confirmed Problem Constipation (38938005) Constipation (K59.00) Added On:2023 Active confirmed Problem Bipolar 2 disorder (65280252) Bipolar 2 disorder (F31.81) Added On:2021 Active confirmed Problem Overweight (643428112) Over weight (E66.3) Added On:2024 Active confirmed Problem Overweight (337746217) Overweight (BMI 25.0-29.9) (E66.3) Added On:2023 Active confirmed Problem Opioid use disorder (7023252667) Opioid use disorder (F11.99) Added On:2023 Active confirmed Problem Tobacco user (579497503) Nicotine dependence with current use (F17.200) Added [...] Date Time Type Facility Location Provider Diagnosis 12/29/19 01:50 PM Office Visit, Est Pt., Level 3 (12618) [address] [address] Arif Habib Nicotine dependence, unspecified, uncomplicated F17.200 and Bipolar 2 disorder F31.81 01/19/20 25 09:20 AM Office Visit, Est Pt., Level 3 (48422) [address] [address] Bahman Mcrae Opioid use disorder F11.99 02/10/20 25 08:20 AM Telehealth Office Visit, Est Pt., Level 3 (65166) [address] [address] Arif Habib Nicotine dependence, unspecified, uncomplicated F17.200 and Bipolar 2 disorder F31.81 02/12/20 25 02:20 PM Office Visit, Est Pt., Level 3 (10317) [address] [address] Bahman Mcrae Opioid use disorder F11.99 02/27/20 25 10:00 AM MED[place] ([address]) [address] [address] Jenia Heavens Opioid use disorder F11.99 ; Overweight (BMI 25.0-29.9) E66.3 and Tobacco use disorder F17.200 03/09/20 25 01:30 PM Office Visit, Est Pt., Level 3 (64181) [address] [address] Arif Habib Nicotine dependence, unspecified, uncomplicated F17.200 and Bipolar 2 disorder F31.81 03/12/20 25 09:00 AM MEDICAL [place] ([address]) [address] [address] Jenia Heavens Opioid use disorder F11.99 ; Overweight (BMI 25.0-29.9) E66.3 and Nicotine dependence with current use F17.200 04/05/20 25 09:40 AM Office Visit, Est Pt., Level 3 (94608) [address] [address] Bahman Mcrae Opioid use disorder F11.99 04/12/20 25 09:20 AM MEDICAL N[place] ([address]) [facility] [address] [address] Deja Costello Opioid use disorder F11.99 04/13/20 25 10:30 AM Office Visit, Est Pt., Level 4 (15573) [address] [address] Arif Habib Nicotine dependence, unspecified, uncomplicated F17.200 and Bipolar 2 disorder F31.81 05/04/20 25 09:30 AM Telehealth Office Visit, Est Pt., Level 3 ([address]02) [address] [address] Arif Habib Nicotine dependence, unspecified, uncomplicated F17.200 and Bipolar 2 disorder F31.81 05/17/20 25 09:40 AM SPECIMEN HANDLING (94835) [facility] [address] [address] Deja Tanwangco Opioid use disorder F11.99 and Nicotine dependence, unspecified, uncomplicated F17.200 06/01/20 25 09:30 AM Office Visit, Est Pt., Level 3 (81559) [address] [address] Arif Habib Nicotine dependence, unspecified, uncomplicated F17.200 and Bipolar 2 disorder F31.81 06/14/20 25 10:40 AM [place]ICAL [place] ([address]) [facility] [address] [place] [address] Deja Tanwangco Opioid use disorder F11.99 07/20/20 25 01:00 PM Office Visit, Est Pt., Level 3 (947[address]) [address] [address] Bahman Mcrae Opioid use disorder F11.99 08/20/20 25 10:40 AM Office Visit, Est Pt., Level 3 ([address]) [address] [address] Bahman Mcrae Opioid use disorder F11.99 08/24/20 25 01:20 PM Office Visit, Est Pt., Level 3 (51536) [address] [address] Arif Habib Over weight E66.3 ; Nicotine dependence, unspecified, uncomplicated F17.200 and Bipolar 2 disorder F31.81 09/17/20 25 01:20 PM SPECIMEN HANDLING ([address]) [place] [address] [place] [address] Margareth Deshpandeyared Opioid use disorder F11.99 10/19/20 02:00 PM Office Visit, Est Pt., Level 3 (01327) [address] [address] Arif Habib Over weight E66.3 ; Nicotine dependence, unspecified, uncomplicated F17.200 and Bipolar 2 disorder F31.81 10/21/20 10:00 AM Office Visit, Est Pt., Level 3 (34462) [address] [address] Margareth Ramosyevgeniy Opioid use disorder F11.99 05/17/20 09:47 AM Telephone Encounter [address] [address] Arif Habib Bipolar 2 disorder F31.81 08/11/20 12:51 PM Telephone Encounter [address] [address] Arif Habib Assessments Encounter Date Diagnosis (ICD [...] dependence with current use (ICD-10 - F17.200) 12/29/2024 Bipolar 2 disorder (ICD-10 - F31.81) [...] Details Provider Name:Niru Hdez, 01:00:00 PM, [address] [facility] [address], [place], [address], Provider Name:Sandhya Rendon , 12/22/2025 09:20:00 AM, [address] , [place], [address], Insurance Providers Payer Name Payer Address Payer Phone Subscriber Number Group Number Insured Name Patient Relationship to Insured Coverage Start Date Coverage End Date [facility] [address] [place] [address] [id number] Marycarmendenys s, Nidia Self - patient is the insured 2 MEDICAID [address] [place] [address] [id number] Paige s, Nidia Self - patient is the insured 5 Medical (General) History Medical History History ICD Code Bipolar disorder Generalized anxiety disorder Cannabis use disorder OUD Surgical History Surgery Date(Month/Year) abcess removal right leg 2019 wisdom teeth removed Hospitalization History Reason Date(Month/Year) [facility] Jeffery JAN 2023 [facility] 2021
--- OUTSIDE RECORDS SUMMARY | 2025-11-26 12:14 | XMS_ITS | Clinical Summary ---
Author Organization [facility] Address [facility] [place] [address] Care Team Providers Care Sole Cementer Name Role Phone Patricia Brooks PA-C Primary Care Provider [phone] Allergies No known active allergies Medications omeprazole [...] patient's age to complete this topic Insurance [facility] Care Teams Sole Cementer Relationship Specialty Start Date End Date Patricia Brooks PA-C [address] [place] [address] PCP - General PHYSICIAN COMMISSARY MANAGER 08/16/21
--- OUTSIDE RECORDS SUMMARY | 2025-11-26 12:14 | XMS_ITS | Clinical Summary ---
Author Organization [facility] [place] [address] Address [address] [place] [id number] Care Team Providers Care Felting Machine Operator Helper Name Role Phone Satnam Matute NP Primary Care Provider [phone] Allergies No known active allergies Medications buprenorphine-nalox [...] Department Care Team Description 10/09/2025 9:26 AM BINGO CALLER - 10/09/2025 11:25 AM BINGO CALLER Hospital Encounter [facility] [address] [place] [address] Neyda Pham MD Discharge Disposition: Discharge to home or self care 10/09/2025 9:13 AM BINGO CALLER - 10/09/2025 11:10 AM BINGO CALLER Emergency [facility] Emergency Department [address] [place] [address] Discharge Disposition: Still a patient from Last [...] often do you attend chur ch or mormonism services? Never 10/09/2025 Do you belong to any clubs o r organizations such as voodoo groups, unions, fraternal or athletic groups, or [...] and heating? Not hard at all 10/09/2025 [facility] - [...] No 10/09/2025 Housing Stability Vital Sign Answer Dailson e Recorded In the last 12 months, was t here a time when you were not able to pay the mortgage or rent on time? No 10/09/2025 Number of Times Moved in the Last Year Not on fi le 10/09/2025 At any time in the past 12 m [facility], were you homeless or living in a chcf (including now)? No 10/09/2025 [facility] Utilities Answer Date Recorded In the [...] on file Legal Sex Female 8:17 AM BINGO CALLER Gender Identity Not on file Sexual Orientation [...] Comments Blood Pressure 124/82 10/09/2025 11:03 AM BINGO CALLER Pulse 111 10/09/2025 11:03 AM BINGO CALLER Temperature 36.1 C (96.9 F) 10/09/2025 9:36 AM BINGO CALLER Respiratory Rate 16 10/09/2025 9:16 AM BINGO CALLER Oxygen Saturation 100% 10/09/2025 9:16 AM BINGO CALLER Inhaled Oxygen Concentration - - Weight 77.1 kg (170 lb) 08/02/2025 10:29 AM CDT Height 154.9 cm (5' 1) 08/02/2025 10:29 AM CDT Body Mass Index 32.12 08/02/2025 10:29 AM CDT Plan of Treatment Upcoming Encounters Date Type Department Care Team (Late st Contact Info) Description 11/27/2025 Hospital Encounter [facility] [address] [place] [address] Neyda Pham MD [address] [place] [address] Health Maintenance Due Date Last Done Comments [...] PROTEIN MARKER (ROM) Routine 10/09/2025 10:02 AM BINGO CALLER from Last 3 Months Results * ROM Plus (IGFBP-1/AFP) (10/09/2025 10:02 AM BINGO CALLER) IFG Binding Protein-1 / AFP Negative Swab 10/09/2025 10:0 2 AM BINGO CALLER 10/09/2025 10:12 AM BINGO CALLER us Neyda Pham MD LAB BODY FLUIDS AND S TOOLS ORDERABLES Final Result [facility]) 1 [facility] Department of Laboratories [place] [id number] from Last 3 Months Insurance [facility] H[facility]/PPO Address: [address] [address] [place] [address] [facility] H[facility]/PPO Address: [address] [address] [place] [address] Care Teams Felting Machine Operator Helper Relationship Specialty Start Date End Date Satnam Matute NP [address] [address] PCP - General Nurse Practitioner 03/21/22
[2025-11-26 13:00] VITALS: BP 139/106; PULSE 75; RESP 16; TEMP 36.8; O2SAT 96
--- NOTE | 2025-11-26 13:22 | ED_ITS ---
HPI - Extremity Problem General Chief complaint: Extremity Problem,Nontraumatic Stated complaint: POST ISSUES Time Seen by Provider: 11/26/25 11:53 History of Present Illness HPI Narrative: Patient is a 24-year-old female who presents to the ER with right lower extremity pain that started last night. She reports she is 1 week out from a . Patient reports she feels as though ?something is in my right calf because it is hard.She reports she was recently started on labetalol by her OBGYN due to high blood pressure. Patient denies any chest pain, shortness of breath, recent fevers, headaches, or urinary symptoms. She reports she has been pumping breast milk. Patient reports her only medical history is bipolar disorder. This is her 1st and delivery. Patient reports she is currently taking anxiety medication but is not taking her bipolar medications, as she stopped taking these during . She reports her mental health is stable at this time. Related Data Home Medications ?Medication ?Instructions ?Recorded ?Confirmed ?Last Taken ?Type docosahexaenoic acid 200 mg mg PO DAILY 05/25/2511/1511/14/25 23:00 History capsule ( DHA) gabapentin 400 mg capsule mg PO BID 05/25/25 11/15/25 11/15/25 08:00 History mirtazapine 15 mg tablet 15 mg PO HS 05/25/25 5 11/14/25 21:00 History buprenorphine 4 mg-naloxone 1 mg film sublingual Q24H 10/30/25 11/15/25 11/15/25 08:00 History sublingual film Allergies Allergy/AdvReac Type Severity Reaction Status Date / Time No Known Allergies Allergy Verified 11/26/25 10:04 Review of Systems 2 Review of Systems: All systems reviewed & are unremarkable except as noted in HPI and below PMFSH Past Medical History Medical History Obesity PTSD (post-traumatic stress disorder) Depression Bipolar 2 disorder Nexplanon removal 02/24/18 Nexplanon removal Nexplanon insertion 06/14/15 Nexplanon insertion Anxiety Surgical History Surgical History [place] teeth removed History of removal of cyst (03/04/19) right lateral thigh Family History Family History Father Hypertension Leukemia Social History Social History Smoking status: Former smoker Tobacco type: e-cigarettes/vaping Second hand tobacco smoke exposure: No Alcohol intake: never Substance use: never Substance use type: does not use, marijuana and opiates Other substance usage details: in the past Lack of Transportation: YES Lack of Food: Never True Current Housing: I Have Housing Concerned About Future Housing: No Difficulty Paying Gas/Electric Bills: No Difficulty Paying for Meds: No Currently Unemployed: No Education: High School Diploma/GED Difficulty w/ Childcare or Family Care: No Living arrangements: with family Additional living arrangements comments: with boyfriend Occupation/Education: unemployed Gender identity (if verbalized by the patient): Female Sexual Orientation (if Verbalized by the Patient): Bisexual Spiritual care concerns: No Exam 2 Narrative: GENERAL: Well appearing, well-nourished, non-toxic, in no acute distress. HEAD: Normocephalic, atraumatic. NECK: Supple. No adenopathy, no masses. RESPIRATORY: Airway patent, respirations nonlabored. Clear to auscultation bilaterally, no rales, rhonchi, wheezing. CARDIOVASCULAR: Regular rate and rhythm without murmurs, rubs, or gallops. Peripheral pulses 2+ and equal bilaterally. + pitting edema bilaterally. ABDOMINAL: Soft, nontender, nondistended, no hepatosplenomegaly. Normoactive BS. MUSCULOSKELETAL: Moves all extremities. Strength/ROM intact without gross deformities. SKIN: Warm, dry, normal color. No rashes. NEURO: A&O X3. Speech clear. Cranial nerves II-XII intact. No ataxic movements. PSYCHIATRIC: Appropriate mood and affect. Normal interaction. Course Vital Signs Vital signs: Vital Signs Temperature 36.8 C 11/26/25 13:00 Pulse Rate 75 11/26/25 13:00 Respiratory Rate 16 11/26/25 13:00 Blood Pressure 139/106 H 11/26/25 13:00 Pulse Oximetry 96 11/26/25 13:00 Temperature 36.8 C 11/26/25 13:00 Pulse Rate 73 11/26/25 16:00 Respiratory Rate 16 11/26/25 16:00 Blood Pressure 138/90 11/26/25 16:00 Pulse Oximetry 98 11/26/25 16:00 MDM [facility] Narrative Medical decision making narrative: Patient is a 24-year-old female who presents to the ER with right lower extremity pain that started last night. She reports she is 1 week out from a . Patient reports she feels as though ?something is in my right calf because it is hard.She reports she was recently started on labetalol by her OBGYN due to high blood pressure. Patient denies any chest pain, shortness of breath, recent fevers, headaches, or urinary symptoms. She reports she has been pumping breast milk. Patient reports her only medical history is bipolar disorder. This is her 1st and delivery. Patient reports she is currently taking anxiety medication but is not taking her bipolar medications, as she stopped taking these during . She reports her mental health is stable at this time. Labs Ordered: CBC, CMP, UA, magnesium LDH, CRP, uric acid Imaging Ordered: R LE venous Doppler ultrasound Medications Ordered: Lasix 4 mg IV, Keflex p.o. Results: Patient's venous ultrasound was negative for a DVT. Diagnosis: Urinary tract infection, bilateral lower extremity edema Consults: Spoke with OBGYN, Dr. Chirinos, who reviewed patient's results with EXERCISE PHYSIOLOGIST CERTIFIED. He advised patient receive a dose of Lasix here in the ER. Dr. Chirinos would like patient to wear compression socks and keep her legs elevated. He advised patient should follow-up with them next week for a blood pressure check. Dr Chirinos reports patient does not need to be discharged home with a prescription for Lasix. Patient Education/Shared MDM: Results of lab work and imaging shared with patient. Patient strongly advised to maintain hydration status upon discharge, keep her lower extremities elevated, and wear compression socks. She should follow-up with her OBGYN next week for a blood pressure check. Patient will be discharged home with a prescription for Keflex p.o.. Strict return precautions provided. Patient verbalized understanding and is in agreement with plan. Vital signs stable at time of discharge. All questions answered. Differential Diagnosis Differential Diagnosis: Congestive heart failure, DVT, preeclampsia, urinary tract infection Lab Data [facility] Lab Attestation statement: I personally reviewed the patient's lab results. 11/26/25 14:08 11/26/25 14:08 Labs: Lab Results 11/26/25 Range/Units 14:08 WBC 7.9 (4.5-10.0) K/mm3 RBC 3.92 L (4.2-5.4) M/mm3 Hgb 12.1 D (12.0-15.0) g/dL Hct 36.6 L (37.0-47.0) % MCV 93.4 (80-100) fl MCH 30.9 (26-34) pg MCHC 33.1 (32-36) g/dl RDW 12.6 (11.5-14.5) % Plt Count 366 D (150-375) k/mm3 MPV 8.2 (7.4-10.4) fl Immature Gran % (Auto) 0.5 (0-0.5) % Neut % (Auto) 60.0 (45.5-73.1) % Lymph % (Auto) 28.4 (18.3-44.2) % [place] % (Auto) 5.3 (2.6-8.5) % Eos % (Auto) 5.4 H (0-4.4) % Baso % (Auto) 0.4 (0.2-1.2) % Lymph # (Auto) 2.25 (0.9-3.2) K/mm3 [place] # (Auto) 0.4 (0.1-0.6) K/mm3 Eos # (Auto) 0.4 H (0-0.3) K/mm3 Baso # (Auto) 0.0 (0.0-0.1) K/mm3 Abs Immat Gran (auto) 0.04 H (0.00-0.031) K/mm3 Absolute Neuts (auto) 4.8 (1.3-6.7) K/mm3 Absolute Nucleated RBC 0.000 (0.0-0.012) K/mm3 Nucleated RBC % 0.0 (0.0-0.2) % Sodium 138 (137-145) mmol/L Potassium 4.3 (3.4-5.0) mmol/L Chloride 102 (98-107) mmol/L Carbon Dioxide 29 (22-30) mmol/L Anion Gap 7 (4-12) mmol/L BUN 13 D (7-17) mg/dL Creatinine 0.68 L (0.7-1.0) mg/dL Estim Creat Clear Calc 108 ml/min Estimated GFR > 60 (59 - ) Glucose 77 (65-110) mg/dL Uric Acid 7.2 (2.5-7.5) mg/dL Calcium 9.6 (8.4-10.2) mg/dL Magnesium 1.7 (1.6-2.3) mg/dL Total Bilirubin 0.4 (0.2-1.3) mg/dL AST 28 (14-36) U/L ALT 33 (6-35) U/L Alkaline Phosphatase 118 (38-126) U/L Lactate Dehydrogenase 410 H (120-246) U/L C-Reactive Protein 1.6 H (<1.0) mg/dL NT-Pro-B Natriuret Pep 462 H (19.9-100) pg/mL Total Protein 8.0 (6.3-8.2) g/dL Albumin 4.2 (3.5-5.1) g/dL Urine Color Yellow (Yellow) Urine Appearance Clear (Clear) Urine pH 7.0 (5.0-9.0) Ur Specific [place] 1.019 (1.001-1.035) Urine Protein Negative (Negative) mg/dL Urine Glucose (UA) Negative (Negative) mg/dL Urine Ketones Negative (Negative) mg/dL Ur Blood (Man) 2+ H (Negative) Urine Nitrate Negative (Negative) Urine Bilirubin Negative (Negative) Urine Urobilinogen 0.2 (<2.0) mg/dL Leukocyte Esterase Rfl Trace H (Negative) RIGO/UL Urine RBC 6-10 H (0-2) /hpf Urine WBC 11-20 H (0-3) /hpf Ur Squamous Epith Cells Occasional (Few) /hpf Urine Bacteria None seen /hpf Urine Casts 0-2 Imaging Data Attestation: I personally reviewed and interpreted this imaging study as follows: Radiologist's impression: ITS Impressions Venous Doppler Study 11/26/25 11:26 IMPRESSION: 1. No right leg DVT. Discharge Plan Discharge Clinical Impression: Lower extremity edema, Urinary tract infection Patient Disposition: Home Condition: Stable Instructions: Antibiotic Form, Urinary Tract Infection in Women (ED), Leg Edema (ED) Additional Instructions: Please return to the ER with any worsening symptoms. Follow-up with your OBGYN next week for a blood pressure check. Take all medications as prescribed, including regularly scheduled medications. Please wear compression socks and keep your legs elevated above the level of your heart. Complete your full dose of antibiotics. Patient Language: Luxembourger Prescriptions: New cephalexin 500 mg capsule 500 mg PO Q8H 7 Days Qty: 21 0RF No Action DHA 200 mg capsule PO DAILY mirtazapine 15 mg tablet 15 mg PO HS gabapentin 400 mg capsule PO BID labetalol 100 mg tablet 100 mg PO Q12H Qty: 60 1RF ibuprofen 600 mg Tablet 600 mg PO Q6HR Qty: 30 0RF buprenorphine-naloxone 4-1 mg film sublingual Q24H Follow-up/Referrals: Darci Lewis MD [Physician, OPERATIONS CHIEF] PHYSICIAN,NURSERY SCHOOL TEACHER [Primary Care Provider, Internal Medicine] Time of Disposition: 16:24
[2025-11-26 14:18] LABS: Hematocrit 36.6 % (37.0-47.0); Hemoglobin 12.1 g/dL (12.0-15.0); Immature Granulocyte Percent A 0.5 % (0-0.5); Lymphocytes Absolute Auto 2.25 K/mm3 (0.9-3.2); Mean Corpuscular HGB Conc 33.1 g/dl (32-36); Mean Corpuscular Hemoglobin 30.9 pg (26-34); Mean Corpuscular Volume 93.4 fl (80-100); Nucleated Red Blood Cells Absolute Auto 0.000 K/mm3 (0.0-0.012); Nucleated Red Blood Cells Perc 0.0 % (0.0-0.2); Platelet Count Result 366 k/mm3 (150-375); Red Blood Count 3.92 M/mm3 (4.2-5.4); White Blood Count 7.9 K/mm3 (4.5-10.0)
[2025-11-26 14:21] LABS: Add Urine Microscopic? YES; Appearance Urine Clear (Clear); Glucose Urine UA Negative (Negative); Leukocyte Esterase Ur Trace LEU/UL (Negative); Nitrate Urine Negative (Negative); Non Pathogenic Casts 0-2; Specific Grav Ur 1.019 (1.001-1.035)
[2025-11-26 14:31] LABS: Alanine Aminotransferase 33 U/L (6-35); Albumin Level 4.2 g/dL (3.5-5.1); Alkaline Phosphatase 118 U/L (38-126); Anion Gap 7 mmol/L (4-12); Aspartate Amino Transferase 28 U/L (14-36); Bilirubin,Total 0.4 mg/dL (0.2-1.3); Blood Urea Nitrogen 13 mg/dL (7-17); CRP 1.6 mg/dL (<1.0); Calcium 9.6 mg/dL (8.4-10.2); Carbon Dioxide 29 mmol/L (22-30); Chloride 102 mmol/L (98-107); Estimated CRCL calculation 108 ml/min; Estimated Glomerular Filt Rate > 60; Glucose 77 mg/dL (65-110); Magnesium 1.7 mg/dL (1.6-2.3); Potassium 4.3 mmol/L (3.4-5.0); Sodium 138 mmol/L (137-145); Total Protein 8.0 g/dL (6.3-8.2); Uric Acid 7.2 mg/dL (2.5-7.5)
[2025-11-26 14:37] LABS: NT Pro B Type Natriuretic Pept 462 pg/mL (19.9-100)
[2025-11-26 16:00] VITALS: BP 138/90; PULSE 73; RESP 16; O2SAT 98
[2025-11-26] MEDS: CEPHALEXIN 500 MG CAPSULE PO (16:04)
[2025-11-26] MEDS: FUROSEMIDE INJ 40 MG/4 ML VIAL IV PUSH (16:05)
== END 2025-11-26 16:45 | disposition home or self-care (01) ==
PROVIDERS: Emergency Provider Registered Nurse
DX: O86.20 Urinary tract infection following delivery, unspecified (principal); N39.0 Urinary tract infection, site not specified; O12.05 Gestational edema, complicating the puerperium; O99.345 Other mental disorders complicating the puerperium; F31.9 Bipolar disorder, unspecified; F41.9 Anxiety disorder, unspecified; F43.10 Post-traumatic stress disorder, unspecified; Z87.891 Personal history of nicotine dependence; Z79.899 Other long term (current) drug therapy; O13.5 Gestational [pregnancy-induced] hypertension without significant proteinuria, complicating the puerperium
CPT/HCPCS: 36415; 80053; 81001; 83615; 83735; 83880; 84550; 85025; 86140; 87086; 93971; 96374; 99284; A9270; J1938